=== PATIENT | male | born 1965 | race African-American/Black ===

== ENCOUNTER 2017-08-19 08:41 | Inpatient (IN) | payer OTHER ==
[2017-08-19 10:28] VITALS: BMI 46.8
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
[2017-08-19] MEDS ORDERED: MAG HYDROX/AL HYDROX/SIMETH 30 ML UNIT-DOSE CUP PO PRN (12:57)
[2017-08-19] MEDS ORDERED: MENTHOL/PHENOL 1 EACH UD MM PRN (12:57)
[2017-08-19] MEDS ORDERED: guaiFENesin/D-METHORPHAN HB 10 ML UNIT-DOSE CUPS PO PRN (12:57)
[2017-08-19] MEDS ORDERED: LOPERAMIDE HCL 2 MG CAPSULE PO PRN (12:57)
[2017-08-19] MEDS ORDERED: ACETAMINOPHEN 325 MG TABLET (FP) PO PRN (12:57)
[2017-08-19] MEDS ORDERED: P-EPHED 60MG/TRIPROLIDI 2.5MG TABLET PO PRN (12:57)
[2017-08-19] MEDS ORDERED: hydrOXYzine PAMOATE 50 MG CAPSULE (FP) PO PRN (12:57)
[2017-08-19] MEDS ORDERED: MAGNESIUM CITRATE 300 ML BOTTLE PO PRN (12:57)
--- NOTE | 2017-08-19 16:06 | HP ---
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 Medical History: Obesity Psychiatric History: denies Physical/Sexual Abuse/Trauma History: denies Vital Signs: Vital Signs - 24 hr 08/19/17 08/19/17 10:24 15:06 Temperature 98.8 F 98.8 F Pulse Rate 70 66 Respiratory 20 18 Rate Blood Pressure 126/67 147/87 Allergies/Adverse Reactions: Allergies Allergy/AdvReac Type Severity Reaction Status Date / Time No Known Allergies Allergy Verified 08/19/17 10:47 Concur with the findings of this exam: Yes - Substance Abuse/Tx History Hx Alcohol Use: Yes (reports drinking since 17 yo,beer 6 packs daily) Hx Substance Use: Yes (heroin since late 31 (MMTP 70 mg ),) Substance Use Type: Alcohol, Opiates Hx Substance Use Treatment: Yes (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, longest abstinence 7 years ) Mental Status Exam - Mental Status Exam Alert and Oriented to: Time, Place, Person Cognitive Function: Grossly Intact Patient Appearance: Well Groomed Mood: Euthymic Affect: Mood Congruent Patient Behavior: Cooperative Speech Pattern: Clear Voice Loudness: Normal Thought Process: Goal Oriented Thought Disorder: Not Present Hallucinations: Denies Suicidal Ideation: Denies Homicidal Ideation: Denies Insight/Judgement: Good Sleep: Fair Appetite: Good Muscle strength/Tone: Normal Gait/Station: Normal Psychiatric Findings - Problem List ([place] 1, 2,3) (1) Alcohol dependence Current Visit: Yes Status: Chronic (2) HTN (hypertension) Current Visit: Yes Status: Chronic Qualifiers: Hypertension type: essential hypertension Qualified Code(s): I10 - Essential (primary) hypertension (3) Methadone maintenance therapy patient Current Visit: Yes Status: Chronic (4) Obesity Current Visit: Yes Status: Chronic Qualifiers: Obesity type: due to excess calories Obesity classification: adult class 3 (BMI >= 40) Body mass index: BMI 40.0-44.9 Comment: consider bariatric surgery - to f/u with primary (5) Opiate dependence, continuous Current Visit: Yes Status: Chronic Comment: increase suboxone 4mg to BID , cont [facility] groups consider detox if unable to stop using heroin Suboxone agreement reviewed, emphasized safekeeping of medication, avoid use of illicit drugs and alcohol (6) Osteoarthritis, knee Current Visit: Yes Status: Chronic Qualifiers: Osteoarthritis type: primary Laterality: bilateral Qualified Code(s): M17.0 - Bilateral primary osteoarthritis of knee - Initial Treatment Plan Initial Treatment Plan: will monitor progress.
[2017-08-19 17:36] LABS: HEMATOCRIT 37.5 % (35.4-49); HEMOGLOBIN 12.3 GM/dL (11.7-16.9); MCH 29.3 pg (25.7-33.7); MCHC 32.8 g/dl (32.0-35.9); MEAN CELL VOLUME 89.2 fl (80-96); MEAN PLT VOLUME 8.8 fl (7.5-11.1); PLATELET COUNT 228 K/MM3 (134-434); RBC 4.21 M/mm3 (4.00-5.60); RDW 15.3 % (11.9-15.9)
[2017-08-19 17:39] LABS: URINE APPEARANCE CLEAR; URINE BILIRUBIN NEGATIVE (<2.0 mg/dL); URINE COLOR YELLOW; URINE GLUCOSE (UA) NEGATIVE (NEGATIVE); URINE KETONE NEGATIVE (NEGATIVE); URINE LEUK ESTERASE NEGATIVE (NEGATIVE); URINE NITRITE NEGATIVE (NEGATIVE); URINE PROTEIN NEGATIVE (NEGATIVE); URINE UROBILINOGEN NEGATIVE mg/dL (0.2-1.0)
[2017-08-19 17:42] LABS: ALBUMIN 3.5 g/dl (3.4-5.0); ANION GAP 5 (8-16); BLOOD UREA NITROGEN 11 mg/dL (7-18); CALCIUM 8.1 mg/dL (8.5-10.1); CHLORIDE 104 mmol/L (98-107); CO2 32 mmol/L (21-32); GLUCOSE,RANDOM 104 mg/dL (74-106); POTASSIUM 4.2 mmol/L (3.5-5.1); SODIUM 141 mmol/L (136-145)
[2017-08-19 17:47] LABS: ALK PHOS 88 U/L (45-117); BILIRUBIN,TOTAL 0.4 mg/dL (0.2-1.0); CREATININE 0.8 mg/dL (0.7-1.3); SGOT/AST 40 U/L (15-37); SGPT/ALT 31 U/L (12-78); TOT PROT 7.5 g/dl (6.4-8.2)
[2017-08-19 17:55] LABS: URINE MUCUS RARE
[2017-08-19] MEDS: THIAMINE HCL 100 MG TABLET (FP) PO SCH (23:58)
[2017-08-20] MEDS ORDERED: METHADONE HCL 40 MG DISPERSABLE TABLET ONE (05:54)
[2017-08-20] MEDS ORDERED: METHADONE HCL 10 MG TABLET ONE (05:54)
[2017-08-20] MEDS ORDERED: METHADONE HCL 40 MG DISPERSABLE TABLET PO SCH (06:00)
[2017-08-20] MEDS: METHADONE 40 MG, METHADONE 30 MG PO SCH (06:25)
[2017-08-20] MEDS: PRENATAL VITAMINS W/ FOLIC ACID TABLET (FP) PO SCH (09:53)
[2017-08-20] MEDS: HYDROCHLOROTHIAZIDE 25 MG TABLET (FP) PO SCH (09:53)
--- NOTE | 2017-08-20 11:59 | EKG ---
Test Reason : Blood Pressure : / mmHG Vent. Rate : 052 BPM Atrial Rate : 052 BPM P-R Int : 172 ms QRS Dur : 098 ms QT Int : 484 ms P-R-T Axes : 055 -07 010 degrees QTc Int : 450 ms SINUS BRADYCARDIA MINIMAL VOLTAGE CRITERIA FOR LVH, MAY BE NORMAL VARIANT BORDERLINE ECG WHEN COMPARED WITH ECG OF 19-JUN-2017 08:52, NO SIGNIFICANT CHANGE WAS FOUND Confirmed by MD JASVIR, COTY ([id number]) on 08/20/2017 11:59:35 AM Referred By: Confirmed By:COTY TAY MD
[2017-08-20] MEDS: THIAMINE HCL 100 MG TABLET (FP) PO SCH (22:22)
[2017-08-21] MEDS ORDERED: METHADONE HCL 10 MG TABLET ONE (04:36)
[2017-08-21] MEDS ORDERED: METHADONE HCL 40 MG DISPERSABLE TABLET ONE (04:37)
[2017-08-21] MEDS: METHADONE 40 MG, METHADONE 30 MG PO SCH (05:59)
[2017-08-21] MEDS: PRENATAL VITAMINS W/ FOLIC ACID TABLET (FP) PO SCH (10:04)
[2017-08-21] MEDS: HYDROCHLOROTHIAZIDE 25 MG TABLET (FP) PO SCH (10:04)
[2017-08-21] MEDS: THIAMINE HCL 100 MG TABLET (FP) PO SCH (21:40)
[2017-08-21] MEDS: MELATONIN 5 MG TABLETS PO PRN (21:40)
[2017-08-22] MEDS ORDERED: METHADONE HCL 40 MG DISPERSABLE TABLET ONE (05:34)
[2017-08-22] MEDS ORDERED: METHADONE HCL 10 MG TABLET ONE (05:34)
[2017-08-22] MEDS: METHADONE 40 MG, METHADONE 30 MG PO SCH (06:01)
[2017-08-22] MEDS: PRENATAL VITAMINS W/ FOLIC ACID TABLET (FP) PO SCH (10:14)
[2017-08-22] MEDS: HYDROCHLOROTHIAZIDE 25 MG TABLET (FP) PO SCH (10:14)
--- NOTE | 2017-08-22 12:36 | PN ---
S Progress Note Note: 52 yo male with hx of chronic EOTH dependence, HTN, obesity, c/o of bilateral leg swelling and sharp pain x "a few weeks", reports poor compliance with medical follow up and medications while out patient. Vital Signs Temperature 98.6 F 08/22/17 06:41 Pulse Rate 56 L 08/22/17 06:41 Respiratory Rate 18 08/22/17 06:41 Blood Pressure 120/72 08/22/17 06:41 O2 Sat by Pulse Oximetry (%) Laboratory Last Values WBC 8.0 K/mm3 (4.0-10.0) 08/19/17 13:00 RBC 4.21 M/mm3 (4.00-5.60) 08/19/17 13:00 Hgb 12.3 GM/dL (11.7-16.9) 08/19/17 13:00 Hct 37.5 % (35.4-49) 08/19/17 13:00 MCV 89.2 fl (80-96) 08/19/17 13:00 MCH 29.3 pg (25.7-33.7) 08/19/17 13:00 MCHC 32.8 g/dl (32.0-35.9) 08/19/17 13:00 RDW 15.3 % (11.9-15.9) 08/19/17 13:00 Plt Count 228 K/MM3 (134-434) 08/19/17 13:00 MPV 8.8 fl (7.5-11.1) 08/19/17 13:00 Sodium 141 mmol/L (136-145) 08/19/17 13:00 Potassium 4.2 mmol/L (3.5-5.1) 08/19/17 13:00 Chloride 104 mmol/L (98-107) 08/19/17 13:00 Carbon Dioxide 32 mmol/L (21-32) 08/19/17 13:00 Anion Gap 5 (8-16) L 08/19/17 13:00 BUN 11 mg/dL (7-18) D 08/19/17 13:00 Creatinine 0.8 mg/dL (0.7-1.3) 08/19/17 13:00 Creat Clearance w eGFR > 60 (>60) 08/19/17 13:00 Random Glucose 104 mg/dL (74-106) 08/19/17 13:00 Calcium 8.1 mg/dL (8.5-10.1) L 08/19/17 13:00 Total Bilirubin 0.4 mg/dL (0.2-1.0) 08/19/17 13:00 AST 40 U/L (15-37) H D 08/19/17 13:00 ALT 31 U/L (12-78) 08/19/17 13:00 Alkaline Phosphatase 88 U/L (45-117) D 08/19/17 13:00 Total Protein 7.5 g/dl (6.4-8.2) 08/19/17 13:00 Albumin 3.5 g/dl (3.4-5.0) 08/19/17 13:00 Urine Color Yellow 08/19/17 14:00 Urine Appearance Clear 08/19/17 14:00 Urine pH 7.0 (5.0-8.0) 08/19/17 14:00 Ur Specific [place] 1.018 (1.001-1.035) 08/19/17 14:00 Urine Protein Negative (NEGATIVE) 08/19/17 14:00 Urine Glucose (UA) Negative (NEGATIVE) 08/19/17 14:00 Urine Ketones Negative (NEGATIVE) 08/19/17 14:00 Urine Blood 1+ (NEGATIVE) H 08/19/17 14:00 Urine Nitrite Negative (NEGATIVE) 08/19/17 14:00 Urine Bilirubin Negative (<2.0 mg/dL) 08/19/17 14:00 Urine Urobilinogen Negative mg/dL (0.2-1.0) 08/19/17 14:00 Ur Leukocyte Esterase Negative (NEGATIVE) 08/19/17 14:00 Urine WBC (Auto) <1 /hpf (3-5) 08/19/17 14:00 Urine RBC (Auto) 16 /hpf (0-3) 08/19/17 14:00 Urine Mucus Rare 08/19/17 14:00 RPR Titer Nonreactive (NONREACTIVE) 08/19/17 13:00 A/P Patient AOx3 in no apparent distress No adventitious breath sounds Full ROM, no joint swelling or edema Skin intact, pulses present, no erythema, warm to touch - 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
[2017-08-22] MEDS: GABAPENTIN 100 MG CAPSULE (FP) PO SCH ×2 (14:22→21:18)
[2017-08-22] MEDS: MELATONIN 5 MG TABLETS PO PRN (21:18)
[2017-08-22] MEDS: THIAMINE HCL 100 MG TABLET (FP) PO SCH (21:18)
[2017-08-23] MEDS ORDERED: METHADONE HCL 10 MG TABLET ONE (04:15)
[2017-08-23] MEDS ORDERED: METHADONE HCL 40 MG DISPERSABLE TABLET ONE (04:15)
[2017-08-23] MEDS: GABAPENTIN 100 MG CAPSULE (FP) PO SCH ×3 (06:25→21:26)
[2017-08-23] MEDS: METHADONE 40 MG, METHADONE 30 MG PO SCH (06:26)
[2017-08-23] MEDS: HYDROCHLOROTHIAZIDE 25 MG TABLET (FP) PO SCH (10:41)
[2017-08-23] MEDS: PRENATAL VITAMINS W/ FOLIC ACID TABLET (FP) PO SCH (10:41)
[2017-08-23] MEDS: THIAMINE HCL 100 MG TABLET (FP) PO SCH (21:26)
[2017-08-24] MEDS: IBUPROFEN 400 MG TABLET (FP) PO PRN (02:20)
[2017-08-24] MEDS ORDERED: METHADONE HCL 10 MG TABLET ONE (05:07)
[2017-08-24] MEDS ORDERED: METHADONE HCL 40 MG DISPERSABLE TABLET ONE (05:07)
[2017-08-24] MEDS: METHADONE 40 MG, METHADONE 30 MG PO SCH (06:14)
[2017-08-24] MEDS: GABAPENTIN 100 MG CAPSULE (FP) PO SCH ×3 (06:14→21:40)
[2017-08-24] MEDS: PRENATAL VITAMINS W/ FOLIC ACID TABLET (FP) PO SCH (09:56)
[2017-08-24] MEDS: HYDROCHLOROTHIAZIDE 25 MG TABLET (FP) PO SCH (09:56)
[2017-08-24] MEDS: THIAMINE HCL 100 MG TABLET (FP) PO SCH (21:40)
[2017-08-25] MEDS ORDERED: METHADONE HCL 10 MG TABLET ONE (02:25)
[2017-08-25] MEDS ORDERED: METHADONE HCL 40 MG DISPERSABLE TABLET ONE (02:26)
[2017-08-25] MEDS: METHADONE 40 MG, METHADONE 30 MG PO SCH (06:00)
[2017-08-25] MEDS: GABAPENTIN 100 MG CAPSULE (FP) PO SCH ×3 (06:00→21:22)
[2017-08-25] MEDS: PRENATAL VITAMINS W/ FOLIC ACID TABLET (FP) PO SCH (09:50)
[2017-08-25] MEDS: HYDROCHLOROTHIAZIDE 25 MG TABLET (FP) PO SCH (09:50)
[2017-08-25] MEDS: IBUPROFEN 400 MG TABLET (FP) PO PRN (19:42)
[2017-08-25] MEDS: THIAMINE HCL 100 MG TABLET (FP) PO SCH (21:22)
[2017-08-25] MEDS: MELATONIN 5 MG TABLETS PO PRN (21:22)
[2017-08-26] MEDS ORDERED: METHADONE HCL 10 MG TABLET ONE (04:09)
[2017-08-26] MEDS ORDERED: METHADONE HCL 40 MG DISPERSABLE TABLET ONE (04:10)
[2017-08-26] MEDS: GABAPENTIN 100 MG CAPSULE (FP) PO SCH ×3 (05:54→21:20)
[2017-08-26] MEDS: METHADONE 40 MG, METHADONE 30 MG PO SCH (05:54)
[2017-08-26] MEDS ORDERED: METHADONE 40 MG, METHADONE 30 MG PO SCH (06:29)
--- NOTE | 2017-08-26 09:46 | PN ---
S Progress Note Note: c/o insomnia, Melatonin not effective, will add Benadryl 50 mg po hs
[2017-08-26] MEDS: HYDROCHLOROTHIAZIDE 25 MG TABLET (FP) PO SCH (09:59)
[2017-08-26] MEDS: PRENATAL VITAMINS W/ FOLIC ACID TABLET (FP) PO SCH (09:59)
[2017-08-26] MEDS: MAGNESIUM HYDROX 2400MG/30ML ORAL SUSPENSION 30 ML CUP PO PRN (10:00)
[2017-08-26] MEDS: diphenhydrAMINE HCL 50 MG CAPSULE PO PRN (21:20)
[2017-08-26] MEDS: THIAMINE HCL 100 MG TABLET (FP) PO SCH (21:20)
[2017-08-27] MEDS ORDERED: METHADONE HCL 40 MG DISPERSABLE TABLET ONE (03:11)
[2017-08-27] MEDS ORDERED: METHADONE HCL 10 MG TABLET ONE (03:11)
[2017-08-27] MEDS ORDERED: METHADONE HCL 10 MG TABLET PO SCH (07:00)
[2017-08-27] MEDS: GABAPENTIN 100 MG CAPSULE (FP) PO SCH ×3 (07:03→21:32)
[2017-08-27] MEDS: METHADONE 40 MG, METHADONE 30 MG PO SCH (07:03)
[2017-08-27] MEDS: PRENATAL VITAMINS W/ FOLIC ACID TABLET (FP) PO SCH (10:12)
[2017-08-27] MEDS: HYDROCHLOROTHIAZIDE 25 MG TABLET (FP) PO SCH (10:12)
[2017-08-27] MEDS: IBUPROFEN 400 MG TABLET (FP) PO PRN (13:52)
[2017-08-27] MEDS: THIAMINE HCL 100 MG TABLET (FP) PO SCH (21:32)
[2017-08-27] MEDS: diphenhydrAMINE HCL 50 MG CAPSULE PO PRN (21:32)
[2017-08-28] MEDS ORDERED: METHADONE HCL 10 MG TABLET ONE (04:04)
[2017-08-28] MEDS ORDERED: METHADONE HCL 40 MG DISPERSABLE TABLET ONE (04:05)
[2017-08-28] MEDS: GABAPENTIN 100 MG CAPSULE (FP) PO SCH ×3 (06:31→21:25)
[2017-08-28] MEDS: METHADONE 40 MG, METHADONE 30 MG PO SCH (06:31)
[2017-08-28] MEDS: PRENATAL VITAMINS W/ FOLIC ACID TABLET (FP) PO SCH (10:11)
[2017-08-28] MEDS: HYDROCHLOROTHIAZIDE 25 MG TABLET (FP) PO SCH (10:11)
--- NOTE | 2017-08-28 13:27 | PN ---
[facility] Progress Note Note: patient c/o insomnia, Benadryl not effective, discussed indications and properties of Belsomra, patient agreed to start
[2017-08-28] MEDS: THIAMINE HCL 100 MG TABLET (FP) PO SCH (21:25)
[2017-08-28] MEDS ORDERED: SUVOREXANT 10 MG TABLET PO SCH (22:00)
[2017-08-29] MEDS ORDERED: METHADONE HCL 40 MG DISPERSABLE TABLET ONE (03:24)
[2017-08-29] MEDS ORDERED: METHADONE HCL 10 MG TABLET ONE (03:24)
[2017-08-29] MEDS: METHADONE 40 MG, METHADONE 30 MG PO SCH (06:10)
[2017-08-29] MEDS: GABAPENTIN 100 MG CAPSULE (FP) PO SCH (06:10)
[2017-08-29] MEDS: MAGNESIUM HYDROX 2400MG/30ML ORAL SUSPENSION 30 ML CUP PO PRN (07:08)
[2017-08-29 07:14] VITALS: TEMP 98.8
--- NOTE | 2017-08-29 08:44 | PN ---
Psychiatric Progress Note Vital Signs: Vital Signs Period Temp Pulse Resp BP Sys/Walker Pulse Ox Last 24 Hr 98.8 F 56-64 16 112-113/63-64 Date of Session: 08/29/17 Chief Complaint:: discharge visit HPI: Patient has addressed alcohol, cocaine, opioid dependence. ROS: HTN, medically managed. Current Medications: Active Medications Generic Name Dose Route Start Last Admin Trade Name Freq PRN Reason Stop Dose Admin Al Hydroxide/Mg Hydroxide 30 ml 08/19/17 12:57 Mylanta Oral Suspension - PO Q6H PRN DYSPEPSIA Diphenhydramine HCl 50 mg 08/26/17 09:40 08/27/17 21:32 Benadryl - PO 50 mg HS PRN Administration INSOMNIA Eucalyptus/Menthol/Phenol/Sorbitol 1 each 08/19/17 12:57 Cepastat Lozenge - MM Q4H PRN SORE THROAT Gabapentin 100 mg 08/22/17 14:00 08/29/17 06:10 Neurontin - PO 100 mg TID SUSAN Administration Guaifenesin 10 ml 08/19/17 12:57 Robitussin Dm - PO Q6H PRN COUGH Hydrochlorothiazide 25 mg 08/20/17 10:00 08/28/17 10:11 Hctz - PO 25 mg DAILY SUSAN Administration Hydroxyzine Pamoate 50 mg 08/19/17 12:57 08/23/17 03:04 Vistaril - PO 50 mg Q4H PRN Administration AGITATION Ibuprofen 400 mg 08/19/17 12:57 08/27/17 13:52 Motrin - PO 400 mg Q6H PRN Administration Pain level 4-6 Loperamide HCl 4 mg 08/19/17 12:57 Imodium - PO Q6H PRN DIARRHEA Magnesium Citrate 300 ml 08/19/17 12:57 Citroma - PO Q48H PRN CONSTIPATION Magnesium Hydroxide 30 ml 08/19/17 12:57 08/29/17 07:08 Milk Of Magnesia - PO 30 ml DAILY PRN Administration CONSTIPATION Melatonin 5 mg 08/19/17 22:00 08/25/17 21:22 Melatonin PO 5 mg HS PRN Administration INSOMNIA Methadone HCl 40 mg/ Methadone 70 mg 08/27/17 07:00 08/29/17 06:10 HCl 30 mg PO 70 mg DAILY@0600 SUSAN Administration Multivit/Folic Acid/Iron 1 tab 08/20/17 10:00 08/28/17 10:11 Vitamins (Sjr) - PO 1 tab DAILY SUSAN Administration Pseudoephedrine/Triprolidine 1 combo 08/19/17 12:57 Actifed - PO TID PRN NASAL CONGESTION Suvorexant 10 mg 08/28/17 22:00 08/28/17 21:25 Belsomra PO 09/04/17 21:59 10 mg HS SUSAN Administration Thiamine HCl 100 mg 08/19/17 22:00 08/28/17 21:25 Vitamin B1 - PO 100 mg HS SUSAN Administration Current Side Effect: No Lab tests ordered: No Lab tests reviewed: Yes Provider note:: Patient has completed today his treatment and met his goals, will continue to address his issues at [facility] outpatient treatment program. Patient gained insights into importance of changing attitudes and utilization of supports available to prevent relapses. Patient is stable for discharge today. Total face to face time:: 20 Mental Status Exam - Mental Status Exam Alert and Oriented to: Time, Place, Person Cognitive Function: Good Patient Appearance: Well Groomed Mood: Hopeful Affect: Appropriate, Mood Congruent Patient Behavior: Appropriate, Cooperative Speech Pattern: Clear, Appropriate Voice Loudness: Normal Thought Process: Intact, Goal Oriented Thought Disorder: Not Present Hallucinations: Denies Suicidal Ideation: Denies Homicidal Ideation: Denies Insight/Judgement: Fair Sleep: Well Appetite: Good Muscle strength/Tone: Normal Gait/Station: Normal Psychiatric Treatment Plan - Problem List (1) Alcohol dependence Current Visit: Yes Qualifiers: Substance use status: uncomplicated Qualified Code(s): F10.20 - Alcohol dependence, uncomplicated (2) HTN (hypertension) Current Visit: Yes Qualifiers: Hypertension type: essential hypertension Qualified Code(s): I10 - Essential (primary) hypertension (3) Methadone maintenance therapy patient Current Visit: Yes (4) Obesity Current Visit: Yes Qualifiers: Obesity type: due to excess calories Obesity classification: adult class 3 (BMI >= 40) Body mass index: BMI 40.0-44.9 Comment: consider bariatric surgery - to f/u with primary (5) Opiate dependence, continuous Current Visit: Yes Comment: increase suboxone 4mg to BID , cont [facility] consider detox if unable to stop using heroin Suboxone agreement reviewed, emphasized safekeeping of medication, avoid use of illicit drugs and alcohol (6) Cocaine dependence Current Visit: No
[2017-08-29] MEDS: HYDROCHLOROTHIAZIDE 25 MG TABLET (FP) PO SCH (09:43)
[2017-08-29] MEDS: PRENATAL VITAMINS W/ FOLIC ACID TABLET (FP) PO SCH (09:43)
[2017-08-29 12:59] VITALS: BP 143/69; PULSE 67
== END 2017-08-29 10:00 | disposition home or self-care (01) | DRG 772 ==
LOC: YASAS 08:41 → Y5N 12:57
PROVIDERS: ADMIT Psychiatry & Neurology Psychiatry; ATTEND Psychiatry & Neurology Psychiatry
PROC: HZ42ZZZ Group Counseling for Substance Abuse Treatment, Cognitive-Behavioral (ICD-10-PCS; principal; 2017-08-19)
DX: F11.20 Opioid dependence, uncomplicated (principal); F10.20 Alcohol dependence, uncomplicated; I10 Essential (primary) hypertension; M17.0 Bilateral primary osteoarthritis of knee; G62.1 Alcoholic polyneuropathy; R60.0 Localized edema; E66.9 Obesity, unspecified; Z68.41 Body mass index [BMI] 40.0-44.9, adult
CPT/HCPCS: 36415; 80053; 81003; 81015; 85027; 86593; 93005; 93010

== ENCOUNTER 2018-01-01 09:37 | Inpatient (IN) | payer OTHER ==
[2018-01-01 10:09] VITALS: BMI 48.4
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
[2018-01-01] MEDS ORDERED: MAG HYDROX/AL HYDROX/SIMETH 30 ML UNIT-DOSE CUP PO PRN (11:31)
[2018-01-01] MEDS ORDERED: P-EPHED 60MG/TRIPROLIDI 2.5MG TABLET PO PRN (11:31)
[2018-01-01] MEDS ORDERED: MAGNESIUM CITRATE 300 ML BOTTLE PO PRN (11:31)
[2018-01-01] MEDS ORDERED: LOPERAMIDE HCL 2 MG CAPSULE PO PRN (11:31)
[2018-01-01] MEDS ORDERED: guaiFENesin/D-METHORPHAN HB 10 ML UNIT-DOSE CUPS PO PRN (11:31)
[2018-01-01] MEDS ORDERED: MENTHOL/PHENOL 1 EACH UD MM PRN (11:31)
[2018-01-01] MEDS ORDERED: MAGNESIUM HYDROX 2400MG/30ML ORAL SUSPENSION 30 ML CUP PO PRN (11:31)
[2018-01-01] MEDS: ACETAMINOPHEN 325 MG TABLET (FP) PO PRN (14:29)
[2018-01-01] MEDS: HYDROCHLOROTHIAZIDE 25 MG TABLET (FP) PO SCH (14:29)
[2018-01-01 14:38] LABS: HEMATOCRIT 38.5 % (35.4-49); HEMOGLOBIN 12.6 GM/dL (11.7-16.9); MCH 29.3 pg (25.7-33.7); MCHC 32.8 g/dl (32.0-35.9); MEAN CELL VOLUME 89.4 fl (80-96); MEAN PLT VOLUME 8.4 fl (7.5-11.1); PLATELET COUNT 241 K/MM3 (134-434); RBC 4.31 M/mm3 (4.00-5.60); RDW 15.5 % (11.9-15.9); WHITE BLOOD COUNT 7.7 K/mm3 (4.0-10.0)
[2018-01-01 14:53] LABS: ALBUMIN 3.6 g/dl (3.4-5.0); ALK PHOS 92 U/L (45-117); ANION GAP 6 MMOL/L (8-16); BILIRUBIN,TOTAL 0.3 mg/dL (0.2-1); BLOOD UREA NITROGEN 10 mg/dL (7-18); CALCIUM 8.5 mg/dL (8.5-10.1); CHLORIDE 102 mmol/L (98-107); CO2 30 mmol/L (21-32); CREATININE 0.8 mg/dL (0.55-1.3); GLUCOSE,RANDOM 102 mg/dL (74-106); POTASSIUM 4.1 mmol/L (3.5-5.1); SGOT/AST 35 U/L (15-37); SGPT/ALT 39 U/L (13-61); SODIUM 138 mmol/L (136-145); TOT PROT 7.5 g/dl (6.4-8.2)
--- NOTE | 2018-01-01 15:26 | EKG ---
Test Reason : Blood Pressure : / mmHG Vent. Rate : 071 BPM Atrial Rate : 071 BPM P-R Int : 148 ms QRS Dur : 098 ms QT Int : 410 ms P-R-T Axes : 058 -10 005 degrees QTc Int : 445 ms NORMAL SINUS RHYTHM MODERATE VOLTAGE CRITERIA FOR LVH, MAY BE NORMAL VARIANT BORDERLINE ECG WHEN COMPARED WITH ECG OF 20-AUG-2017 07:32, NO SIGNIFICANT CHANGE WAS FOUND Confirmed by MATHEUS MCCALL, SHEKHAR ([id number]) on 01/01/2018 3:25:39 PM Referred By: Confirmed By:SHEKHAR JARVIS MD
[2018-01-01 18:36] LABS: URINE APPEARANCE CLEAR; URINE BILIRUBIN NEGATIVE (<2.0 mg/dL); URINE COLOR YELLOW; URINE GLUCOSE (UA) NEGATIVE (NEGATIVE); URINE KETONE NEGATIVE (NEGATIVE); URINE LEUK ESTERASE NEGATIVE (NEGATIVE); URINE NITRITE NEGATIVE (NEGATIVE); URINE PROTEIN NEGATIVE (NEGATIVE); URINE UROBILINOGEN NEGATIVE mg/dL (0.2-1.0)
[2018-01-01 18:50] LABS: URINE MUCUS RARE
[2018-01-01] MEDS: THIAMINE HCL 100 MG TABLET (FP) PO SCH (21:22)
[2018-01-01] MEDS: MELATONIN 5 MG TABLETS PO PRN (21:22)
[2018-01-02] MEDS ORDERED: METHADONE HCL 10 MG TABLET PO SCH (06:00)
[2018-01-02] MEDS ORDERED: METHADONE HCL 10 MG TABLET ONE (06:02)
[2018-01-02] MEDS ORDERED: METHADONE HCL 40 MG DISPERSABLE TABLET ONE (06:03)
[2018-01-02] MEDS: METHADONE 40 MG, METHADONE 30 MG PO SCH (06:14)
[2018-01-02] MEDS: PRENATAL VITAMINS W/ FOLIC ACID TABLET (FP) PO SCH (10:27)
[2018-01-02] MEDS: HYDROCHLOROTHIAZIDE 25 MG TABLET (FP) PO SCH (10:27)
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
[2018-01-02] MEDS: THIAMINE HCL 100 MG TABLET (FP) PO SCH (21:25)
[2018-01-02] MEDS: MELATONIN 5 MG TABLETS PO PRN (21:26)
[2018-01-03] MEDS ORDERED: METHADONE HCL 10 MG TABLET ONE (06:06)
[2018-01-03] MEDS: ACETAMINOPHEN 325 MG TABLET (FP) PO PRN (06:07)
[2018-01-03] MEDS ORDERED: METHADONE HCL 40 MG DISPERSABLE TABLET ONE (06:07)
[2018-01-03] MEDS: METHADONE 40 MG, METHADONE 30 MG PO SCH (06:07)
[2018-01-03] MEDS: HYDROCHLOROTHIAZIDE 25 MG TABLET (FP) PO SCH (10:09)
[2018-01-03] MEDS: PRENATAL VITAMINS W/ FOLIC ACID TABLET (FP) PO SCH (10:09)
[2018-01-03] MEDS: MELATONIN 5 MG TABLETS PO PRN (21:25)
[2018-01-03] MEDS: THIAMINE HCL 100 MG TABLET (FP) PO SCH (21:25)
[2018-01-04] MEDS ORDERED: METHADONE HCL 40 MG DISPERSABLE TABLET ONE (03:39)
[2018-01-04] MEDS ORDERED: METHADONE HCL 10 MG TABLET ONE (03:39)
[2018-01-04] MEDS: METHADONE 40 MG, METHADONE 30 MG PO SCH (06:47)
[2018-01-04] MEDS: IBUPROFEN 400 MG TABLET (FP) PO PRN (07:31)
[2018-01-04] MEDS: PRENATAL VITAMINS W/ FOLIC ACID TABLET (FP) PO SCH (10:13)
[2018-01-04] MEDS: HYDROCHLOROTHIAZIDE 25 MG TABLET (FP) PO SCH (10:13)
[2018-01-04] MEDS: THIAMINE HCL 100 MG TABLET (FP) PO SCH (21:39)
[2018-01-04] MEDS: hydrOXYzine PAMOATE 50 MG CAPSULE (FP) PO PRN (21:40)
[2018-01-05] MEDS ORDERED: METHADONE HCL 10 MG TABLET ONE (06:32)
[2018-01-05] MEDS: METHADONE 40 MG, METHADONE 30 MG PO SCH (06:33)
[2018-01-05] MEDS ORDERED: METHADONE HCL 40 MG DISPERSABLE TABLET ONE (06:33)
[2018-01-05] MEDS: HYDROCHLOROTHIAZIDE 25 MG TABLET (FP) PO SCH (10:20)
[2018-01-05] MEDS: PRENATAL VITAMINS W/ FOLIC ACID TABLET (FP) PO SCH (10:20)
[2018-01-05] MEDS: THIAMINE HCL 100 MG TABLET (FP) PO SCH (21:22)
[2018-01-05] MEDS: MELATONIN 5 MG TABLETS PO PRN (21:22)
[2018-01-05] MEDS: hydrOXYzine PAMOATE 50 MG CAPSULE (FP) PO PRN (21:23)
[2018-01-06] MEDS ORDERED: METHADONE HCL 40 MG DISPERSABLE TABLET ONE (03:22)
[2018-01-06] MEDS ORDERED: METHADONE HCL 10 MG TABLET ONE (03:22)
[2018-01-06] MEDS: METHADONE 40 MG, METHADONE 30 MG PO SCH (06:53)
[2018-01-06] MEDS: HYDROCHLOROTHIAZIDE 25 MG TABLET (FP) PO SCH (10:04)
[2018-01-06] MEDS: PRENATAL VITAMINS W/ FOLIC ACID TABLET (FP) PO SCH (10:04)
[2018-01-06] MEDS: THIAMINE HCL 100 MG TABLET (FP) PO SCH (21:19)
[2018-01-06] MEDS: hydrOXYzine PAMOATE 50 MG CAPSULE (FP) PO PRN (21:20)
[2018-01-07] MEDS ORDERED: METHADONE HCL 10 MG TABLET ONE (04:59)
[2018-01-07] MEDS ORDERED: METHADONE HCL 40 MG DISPERSABLE TABLET ONE (05:00)
[2018-01-07] MEDS: METHADONE 40 MG, METHADONE 30 MG PO SCH (06:09)
[2018-01-07] MEDS: PRENATAL VITAMINS W/ FOLIC ACID TABLET (FP) PO SCH (09:51)
[2018-01-07] MEDS: HYDROCHLOROTHIAZIDE 25 MG TABLET (FP) PO SCH (09:51)
[2018-01-07] MEDS: IBUPROFEN 400 MG TABLET (FP) PO PRN (13:50)
[2018-01-07] MEDS: THIAMINE HCL 100 MG TABLET (FP) PO SCH (21:15)
[2018-01-07] MEDS: hydrOXYzine PAMOATE 50 MG CAPSULE (FP) PO PRN (21:15)
[2018-01-08] MEDS ORDERED: METHADONE HCL 10 MG TABLET ONE (06:10)
[2018-01-08] MEDS ORDERED: METHADONE HCL 40 MG DISPERSABLE TABLET ONE (06:10)
[2018-01-08] MEDS: IBUPROFEN 400 MG TABLET (FP) PO PRN (06:11)
[2018-01-08] MEDS: METHADONE 40 MG, METHADONE 30 MG PO SCH (06:12)
[2018-01-08] MEDS: HYDROCHLOROTHIAZIDE 25 MG TABLET (FP) PO SCH (10:36)
[2018-01-08] MEDS: PRENATAL VITAMINS W/ FOLIC ACID TABLET (FP) PO SCH (10:37)
[2018-01-08] MEDS ORDERED: IBUPROFEN 400 MG TABLET (FP) PO SCH (11:00)
--- NOTE | 2018-01-08 11:04 | PN ---
S Progress Note Note: PT C/O LEFT KNEE PAIN AND SWELLING. PT REPORTS CHRONIC HX ARTHRITIS("MY DOCTOR SAID I HAVE ARTHRITIS") WITH ON/OFF PAIN ON THE KNEE. PT WAS OFFERED A CANE BUT HE DECLINED. LEFT KNEE/LEG: VERY MINIMAL SWELLING COMPARED TO RIGHT KNEE. NO PAIN ON PALPATION OF LEFT KNEE DX:S/P ARTHRITIS WITH A FLARE PLAN;NAPROSYN 500 MG PO BID ANALGESIC BALM.
[2018-01-08] MEDS ORDERED: NAPROXEN 500 MG TABLET (FP) PO ONE (11:45)
[2018-01-08] MEDS: METHYL SALICYLATE/MENTHOL OINT 30 GM TUBE TP SCH ×2 (12:53→21:22)
[2018-01-08] MEDS: MELATONIN 5 MG TABLETS PO PRN (21:21)
[2018-01-08] MEDS: NAPROXEN 500 MG TABLET (FP) PO SCH (21:21)
[2018-01-08] MEDS: THIAMINE HCL 100 MG TABLET (FP) PO SCH (21:21)
[2018-01-09] MEDS ORDERED: METHADONE HCL 10 MG TABLET ONE (04:27)
[2018-01-09] MEDS ORDERED: METHADONE HCL 40 MG DISPERSABLE TABLET ONE (04:28)
[2018-01-09] MEDS: METHADONE 40 MG, METHADONE 30 MG PO SCH (06:20)
[2018-01-09] MEDS ORDERED: PT OWN MED DRAWER 7, Y5N ONE (09:06)
[2018-01-09] MEDS: PRENATAL VITAMINS W/ FOLIC ACID TABLET (FP) PO SCH (10:01)
[2018-01-09] MEDS: HYDROCHLOROTHIAZIDE 25 MG TABLET (FP) PO SCH (10:01)
[2018-01-09] MEDS: NAPROXEN 500 MG TABLET (FP) PO SCH ×2 (10:01→21:20)
[2018-01-09] MEDS: METHYL SALICYLATE/MENTHOL OINT 30 GM TUBE TP SCH ×2 (10:01→21:20)
[2018-01-09] MEDS: THIAMINE HCL 100 MG TABLET (FP) PO SCH (21:20)
[2018-01-09] MEDS: hydrOXYzine PAMOATE 50 MG CAPSULE (FP) PO PRN (21:20)
[2018-01-10] MEDS ORDERED: METHADONE HCL 10 MG TABLET ONE (05:48)
[2018-01-10] MEDS ORDERED: METHADONE HCL 40 MG DISPERSABLE TABLET ONE (05:49)
[2018-01-10] MEDS: METHADONE 40 MG, METHADONE 30 MG PO SCH (06:14)
[2018-01-10] MEDS: PRENATAL VITAMINS W/ FOLIC ACID TABLET (FP) PO SCH (10:11)
[2018-01-10] MEDS: NAPROXEN 500 MG TABLET (FP) PO SCH ×2 (10:11→21:30)
[2018-01-10] MEDS: HYDROCHLOROTHIAZIDE 25 MG TABLET (FP) PO SCH (10:11)
[2018-01-10] MEDS: METHYL SALICYLATE/MENTHOL OINT 30 GM TUBE TP SCH ×2 (10:12→21:30)
[2018-01-10] MEDS: THIAMINE HCL 100 MG TABLET (FP) PO SCH (21:30)
[2018-01-10] MEDS: hydrOXYzine PAMOATE 50 MG CAPSULE (FP) PO PRN (21:31)
[2018-01-11] MEDS ORDERED: METHADONE HCL 40 MG DISPERSABLE TABLET ONE (06:19)
[2018-01-11] MEDS ORDERED: METHADONE HCL 10 MG TABLET ONE (06:19)
[2018-01-11] MEDS: METHADONE 40 MG, METHADONE 30 MG PO SCH (06:19)
[2018-01-11] MEDS: PRENATAL VITAMINS W/ FOLIC ACID TABLET (FP) PO SCH (10:00)
[2018-01-11] MEDS: HYDROCHLOROTHIAZIDE 25 MG TABLET (FP) PO SCH (10:00)
[2018-01-11] MEDS: NAPROXEN 500 MG TABLET (FP) PO SCH ×2 (10:00→21:27)
[2018-01-11] MEDS: METHYL SALICYLATE/MENTHOL OINT 30 GM TUBE TP SCH ×2 (10:01→21:28)
[2018-01-11] MEDS: THIAMINE HCL 100 MG TABLET (FP) PO SCH (21:27)
[2018-01-11] MEDS: hydrOXYzine PAMOATE 50 MG CAPSULE (FP) PO PRN (21:28)
[2018-01-12] MEDS ORDERED: METHADONE HCL 10 MG TABLET ONE (02:18)
[2018-01-12] MEDS ORDERED: METHADONE HCL 40 MG DISPERSABLE TABLET ONE (02:18)
[2018-01-12] MEDS: METHADONE 40 MG, METHADONE 30 MG PO SCH (06:19)
[2018-01-12] MEDS: PRENATAL VITAMINS W/ FOLIC ACID TABLET (FP) PO SCH (09:50)
[2018-01-12] MEDS: METHYL SALICYLATE/MENTHOL OINT 30 GM TUBE TP SCH ×2 (09:50→21:58)
[2018-01-12] MEDS: HYDROCHLOROTHIAZIDE 25 MG TABLET (FP) PO SCH (09:50)
[2018-01-12] MEDS: NAPROXEN 500 MG TABLET (FP) PO SCH ×2 (09:50→21:20)
[2018-01-12] MEDS: THIAMINE HCL 100 MG TABLET (FP) PO SCH (21:20)
[2018-01-12] MEDS: hydrOXYzine PAMOATE 50 MG CAPSULE (FP) PO PRN (21:29)
--- NOTE | 2018-01-12 22:42 | PN ---
S Progress Note Note: MD'S NOTE: INFORMED AT ABOUT 9:45PM THAT SOMEONE FELL ON HIS LEFT LOWER LIMB C/O: DEVELOPED PAIN IN LEFT KNEE REGION+ NO OTHER NEW COMPLAINTS O/E: THE PT. IS JONES X 3, NOT IN DISTRESS AND HE IS WALKING SLOWLY EDEMATOUS (ONGOING) LOWER LIMBS+++ L/E: LEFT KNEE: MILD SWELLING+ MILD TENDERNESS+ MOVEMENTS ARE SATISFACTORY BUT EXTREME MOVEMENTS ARE LIMITED CLINICALLY NO EVIDENCE OF FRACTURES. IMPRESSION: SOFT TISSUE INJURY LEFT KNEE REGION PLANS: ICE PACKING LOCALLY - PRN NERIS BANDAGE - PRN ANALGESICS - PRN WILL CONSIDER X-RAY IN THE EVENT OF WORSENING PAIN WILL F/U: NEEDED. PROVIDER: MARGRET RENDON MD
[2018-01-13] MEDS ORDERED: METHADONE HCL 40 MG DISPERSABLE TABLET ONE (04:12)
[2018-01-13] MEDS ORDERED: METHADONE HCL 10 MG TABLET ONE (04:12)
[2018-01-13] MEDS: METHADONE 40 MG, METHADONE 30 MG PO SCH (06:26)
--- NOTE | 2018-01-13 09:13 | PN ---
BHS Progress Note (SOAP) Subjective: C/0 increased (L) Knee pain since a patient fell on knee last night. Pain is achy and a "8". Pain increases when walks. Also c/o increase swelling of (L) knee. Objective: Alert and oriented. (L) knee w/ swelling. No increased erythema or warmth. No crepitus. FROM w/ tenderness. Walking w/a limp. BLE 1+ pitting edema toes to mid calf. Currently on HCTZ. 01/13/18 09:10 01/13/18 09:18 Assessment: (L) knee trauma. Edema HTN 01/13/18 09:13 Plan: Continue rehab. Ice Pack (L) knee Q2H and prn X-ray (L) knee. Ibuprofen . Encourage elevation legs. cANE
[2018-01-13] MEDS: IBUPROFEN 600 MG TABLET (FP) PO PRN ×2 (09:56→21:25)
[2018-01-13] MEDS: HYDROCHLOROTHIAZIDE 25 MG TABLET (FP) PO SCH (09:56)
[2018-01-13] MEDS: PRENATAL VITAMINS W/ FOLIC ACID TABLET (FP) PO SCH (09:56)
[2018-01-13] MEDS: hydrOXYzine PAMOATE 50 MG CAPSULE (FP) PO PRN (21:24)
[2018-01-13] MEDS: THIAMINE HCL 100 MG TABLET (FP) PO SCH (21:24)
[2018-01-14] MEDS ORDERED: METHADONE HCL 10 MG TABLET ONE (06:07)
[2018-01-14] MEDS ORDERED: METHADONE HCL 40 MG DISPERSABLE TABLET ONE (06:07)
[2018-01-14] MEDS ORDERED: METHADONE HCL 10 MG TABLET PO SCH (06:30)
[2018-01-14] MEDS: METHADONE 40 MG, METHADONE 30 MG PO SCH (06:38)
[2018-01-14] MEDS: PRENATAL VITAMINS W/ FOLIC ACID TABLET (FP) PO SCH (09:42)
[2018-01-14] MEDS: HYDROCHLOROTHIAZIDE 25 MG TABLET (FP) PO SCH (09:42)
--- NOTE | 2018-01-14 13:30 | PN ---
BHS Progress Note Note: Vital Signs Temperature 97.6 F 01/14/18 06:43 Pulse Rate 67 01/14/18 10:00 Respiratory Rate 18 01/14/18 10:00 Blood Pressure 139/67 01/14/18 10:00 O2 Sat by Pulse Oximetry (%) x-ray negative for fracture or acute pathology continue to monitor Patient to follow up with PCP
[2018-01-14] MEDS: hydrOXYzine PAMOATE 50 MG CAPSULE (FP) PO PRN (21:37)
[2018-01-14] MEDS: THIAMINE HCL 100 MG TABLET (FP) PO SCH (21:37)
[2018-01-14] MEDS: IBUPROFEN 600 MG TABLET (FP) PO PRN (21:37)
[2018-01-15] MEDS ORDERED: METHADONE HCL 10 MG TABLET ONE (04:34)
[2018-01-15] MEDS ORDERED: METHADONE HCL 40 MG DISPERSABLE TABLET ONE (04:34)
[2018-01-15] MEDS: METHADONE 40 MG, METHADONE 30 MG PO SCH (06:08)
[2018-01-15] MEDS: HYDROCHLOROTHIAZIDE 25 MG TABLET (FP) PO SCH (10:13)
[2018-01-15] MEDS: PRENATAL VITAMINS W/ FOLIC ACID TABLET (FP) PO SCH (10:13)
[2018-01-15] MEDS: IBUPROFEN 600 MG TABLET (FP) PO PRN ×2 (10:14→21:35)
[2018-01-15] MEDS: hydrOXYzine PAMOATE 50 MG CAPSULE (FP) PO PRN (21:35)
[2018-01-15] MEDS: THIAMINE HCL 100 MG TABLET (FP) PO SCH (21:35)
[2018-01-16] MEDS ORDERED: METHADONE HCL 10 MG TABLET ONE (03:15)
[2018-01-16] MEDS ORDERED: METHADONE HCL 40 MG DISPERSABLE TABLET ONE (03:15)
[2018-01-16] MEDS: METHADONE 40 MG, METHADONE 30 MG PO SCH (06:03)
[2018-01-16] MEDS: HYDROCHLOROTHIAZIDE 25 MG TABLET (FP) PO SCH (10:13)
[2018-01-16] MEDS: PRENATAL VITAMINS W/ FOLIC ACID TABLET (FP) PO SCH (10:13)
[2018-01-16] MEDS: IBUPROFEN 600 MG TABLET (FP) PO PRN ×3 (10:14→21:26)
[2018-01-16] MEDS: hydrOXYzine PAMOATE 50 MG CAPSULE (FP) PO PRN (21:26)
[2018-01-16] MEDS: THIAMINE HCL 100 MG TABLET (FP) PO SCH (21:26)
[2018-01-17] MEDS ORDERED: METHADONE HCL 10 MG TABLET ONE (05:29)
[2018-01-17] MEDS ORDERED: METHADONE HCL 40 MG DISPERSABLE TABLET ONE (05:29)
[2018-01-17] MEDS: METHADONE 40 MG, METHADONE 30 MG PO SCH (06:06)
[2018-01-17] MEDS: PRENATAL VITAMINS W/ FOLIC ACID TABLET (FP) PO SCH (09:50)
[2018-01-17] MEDS: HYDROCHLOROTHIAZIDE 25 MG TABLET (FP) PO SCH (09:50)
[2018-01-17] MEDS: IBUPROFEN 600 MG TABLET (FP) PO PRN ×2 (09:51→21:30)
[2018-01-17] MEDS: hydrOXYzine PAMOATE 50 MG CAPSULE (FP) PO PRN (21:29)
[2018-01-17] MEDS: THIAMINE HCL 100 MG TABLET (FP) PO SCH (21:29)
[2018-01-18] MEDS ORDERED: METHADONE HCL 40 MG DISPERSABLE TABLET ONE (04:30)
[2018-01-18] MEDS ORDERED: METHADONE HCL 10 MG TABLET ONE (04:30)
[2018-01-18] MEDS: METHADONE 40 MG, METHADONE 30 MG PO SCH (06:06)
[2018-01-18] MEDS: PRENATAL VITAMINS W/ FOLIC ACID TABLET (FP) PO SCH (10:05)
[2018-01-18] MEDS: HYDROCHLOROTHIAZIDE 25 MG TABLET (FP) PO SCH (10:05)
[2018-01-18] MEDS: IBUPROFEN 600 MG TABLET (FP) PO PRN ×2 (10:06→21:23)
[2018-01-18] MEDS: THIAMINE HCL 100 MG TABLET (FP) PO SCH (21:22)
[2018-01-18] MEDS: hydrOXYzine PAMOATE 50 MG CAPSULE (FP) PO PRN (21:22)
[2018-01-19] MEDS ORDERED: METHADONE HCL 10 MG TABLET ONE (03:18)
[2018-01-19] MEDS ORDERED: METHADONE HCL 40 MG DISPERSABLE TABLET ONE (03:19)
[2018-01-19] MEDS: METHADONE 40 MG, METHADONE 30 MG PO SCH (06:03)
[2018-01-19] MEDS: HYDROCHLOROTHIAZIDE 25 MG TABLET (FP) PO SCH (10:19)
[2018-01-19] MEDS: PRENATAL VITAMINS W/ FOLIC ACID TABLET (FP) PO SCH (10:19)
[2018-01-19] MEDS: IBUPROFEN 600 MG TABLET (FP) PO PRN (10:20)
[2018-01-19] MEDS: hydrOXYzine PAMOATE 50 MG CAPSULE (FP) PO PRN (21:13)
[2018-01-19] MEDS: THIAMINE HCL 100 MG TABLET (FP) PO SCH (21:13)
[2018-01-20] MEDS ORDERED: METHADONE HCL 10 MG TABLET ONE (04:08)
[2018-01-20] MEDS ORDERED: METHADONE HCL 40 MG DISPERSABLE TABLET ONE (04:08)
[2018-01-20] MEDS: METHADONE 40 MG, METHADONE 30 MG PO SCH (06:00)
[2018-01-20] MEDS ORDERED: METHADONE HCL 10 MG TABLET PO SCH (06:00)
[2018-01-20] MEDS: HYDROCHLOROTHIAZIDE 25 MG TABLET (FP) PO SCH (10:31)
[2018-01-20] MEDS: PRENATAL VITAMINS W/ FOLIC ACID TABLET (FP) PO SCH (10:31)
[2018-01-20] MEDS: IBUPROFEN 600 MG TABLET (FP) PO PRN ×2 (10:31→21:24)
[2018-01-20] MEDS: hydrOXYzine PAMOATE 50 MG CAPSULE (FP) PO PRN (21:24)
[2018-01-20] MEDS: THIAMINE HCL 100 MG TABLET (FP) PO SCH (21:24)
[2018-01-21] MEDS ORDERED: METHADONE HCL 10 MG TABLET ONE (03:34)
[2018-01-21] MEDS ORDERED: METHADONE HCL 40 MG DISPERSABLE TABLET ONE (03:34)
[2018-01-21] MEDS: METHADONE 40 MG, METHADONE 30 MG PO SCH (06:02)
[2018-01-21] MEDS: HYDROCHLOROTHIAZIDE 25 MG TABLET (FP) PO SCH (10:03)
[2018-01-21] MEDS: PRENATAL VITAMINS W/ FOLIC ACID TABLET (FP) PO SCH (10:03)
[2018-01-21] MEDS: IBUPROFEN 600 MG TABLET (FP) PO PRN ×2 (10:04→21:30)
[2018-01-21 10:29] VITALS: PULSE 64
--- NOTE | 2018-01-21 11:51 | PN ---
Psychiatric Progress Note Vital Signs: Vital Signs Period Temp Pulse Resp BP Sys/Walker Pulse Ox Last 24 Hr 98.1 F 63-64 18-19 122-123/73-78 Date of Session: 01/21/18 Chief Complaint:: Discharge Note HPI: Patient addressing Opioid Dependence comorbid with Opioid Dependdnce on Agonist Therapy and Alcol-Induced Sleep Disorder ROS: Alcoholic neuropathy, HTN, Obesity, Osteoarthritis Knees were medically managed Current Medications: Active Medications Generic Name Dose Route Start Last Admin Trade Name Freq PRN Reason Stop Dose Admin Acetaminophen 650 mg 01/01/18 11:31 01/03/18 06:07 Tylenol - PO 650 mg Q4H PRN Administration FEVER Al Hydroxide/Mg Hydroxide 30 ml 01/01/18 11:31 Mylanta Oral Suspension - PO Q6H PRN DYSPEPSIA Eucalyptus/Menthol/Phenol/Sorbitol 1 each 01/01/18 11:31 Cepastat Lozenge - MM Q4H PRN SORE THROAT Guaifenesin 10 ml 01/01/18 11:31 Robitussin Dm - PO Q6H PRN COUGH Hydrochlorothiazide 25 mg 01/01/18 12:50 01/21/18 10:03 Hctz - PO 25 mg DAILY SUSAN Administration Hydroxyzine Pamoate 50 mg 01/01/18 11:31 01/20/18 21:24 Vistaril - PO 50 mg Q4H PRN Administration AGITATION Ibuprofen 600 mg 01/13/18 09:03 01/21/18 10:04 Motrin - PO 600 mg Q8H PRN Administration PAIN LEVEL 6-10 Loperamide HCl 4 mg 01/01/18 11:31 Imodium - PO Q6H PRN DIARRHEA Magnesium Citrate 300 ml 01/01/18 11:31 Citroma - PO Q48H PRN CONSTIPATION Magnesium Hydroxide 30 ml 01/01/18 11:31 Milk Of Magnesia - PO DAILY PRN CONSTIPATION Melatonin 5 mg 01/01/18 22:00 01/08/18 21:21 Melatonin PO 5 mg HS PRN Administration INSOMNIA Methadone HCl 40 mg/ Methadone 70 mg 01/20/18 06:00 01/21/18 06:02 HCl 30 mg PO 70 mg DAILY@0600 SUSAN Administration Multivit/Folic Acid/Iron 1 tab 01/02/18 10:00 01/21/18 10:03 Vitamins (Sjr) - PO 1 tab DAILY SUSAN Administration Pseudoephedrine/Triprolidine 1 combo 01/01/18 11:31 Actifed - PO TID PRN NASAL CONGESTION Thiamine HCl 100 mg 01/01/18 22:00 01/20/18 21:24 Vitamin B1 - PO 100 mg HS SUSAN Administration Current Side Effect: No Lab tests ordered: Yes Lab tests reviewed: Yes Provider note:: Patient will complete this program on . He has met his treatment goals and will continue to address his issues in outpatient treatment at [facility]. 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 He is stable for discharge on 01/22/18 Total face to face time:: 35 Mental Status Exam - Mental Status Exam Alert and Oriented to: Time, Place, Person Cognitive Function: Fair Patient Appearance: Well Groomed Mood: Hopeful, Euthymic Affect: Appropriate Patient Behavior: Cooperative Speech Pattern: Clear Voice Loudness: Normal Thought Process: Intact, Goal Oriented Thought Disorder: Not Present Hallucinations: Denies Suicidal Ideation: Denies Homicidal Ideation: Denies Insight/Judgement: Fair Sleep: Fair Appetite: Good Muscle strength/Tone: Normal Gait/Station: Normal Psychiatric Treatment Plan - Problem List (1) Opioid dependence on agonist therapy Current Visit: Yes (2) Substance-induced sleep disorder Current Visit: Yes (3) Alcoholic peripheral neuropathy Current Visit: No (4) HTN (hypertension) Current Visit: No Qualifiers: Hypertension type: essential hypertension Qualified Code(s): I10 - Essential (primary) hypertension (5) Obesity Current Visit: No Qualifiers: Obesity type: due to excess calories Obesity classification: adult class 3 (BMI >= 40) Serious obesity comorbidity presence: unspecified whether serious comorbidity present Body mass index: BMI 40.0-44.9 Qualified Code(s): E66.01 - Morbid (severe) obesity due to excess calories; Z68.41 - Body mass index (BMI) 40.0-44.9, adult Comment: consider bariatric surgery - to f/u with primary (6) Osteoarthritis, knee Current Visit: Yes Qualifiers: Osteoarthritis type: primary Laterality: bilateral Qualified Code(s): M17.0 - Bilateral primary osteoarthritis of knee Initial treatment plan: Patient will be discharged tomorrow and referred to [facility] for outpatient treatment
[2018-01-21] MEDS: THIAMINE HCL 100 MG TABLET (FP) PO SCH (21:30)
[2018-01-21] MEDS: hydrOXYzine PAMOATE 50 MG CAPSULE (FP) PO PRN (21:30)
--- NOTE | 2018-01-22 00:09 | PN ---
BHS Progress Note Note: Pt discharged on 01/21/18 a.m. Rehab completed. Alert o x 3. No acute distress. Vital Signs (72 hours) 01/19/18 01/19/18 01/19/18 03:30 06:40 10:00 Temperature 97.9 F Pulse Rate 63 76 Respiratory 18 20 18 Rate Blood Pressure 137/73 140/70 01/20/18 01/20/18 01/20/18 00:29 03:30 07:16 Temperature 97.1 F L Pulse Rate 67 Respiratory 18 18 18 Rate Blood Pressure 113/75 01/20/18 01/21/18 01/21/18 10:00 00:30 03:30 Temperature Pulse Rate 76 Respiratory 20 18 18 Rate Blood Pressure 135/70 01/21/18 01/21/18 06:47 10:29 Temperature 98.1 F Pulse Rate 63 64 Respiratory 19 Rate Blood Pressure 122/78 123/73 Plan: Follow up with aftercare as discussed with counselor. Follow up with pcp re: comorbid conditions medical management.
[2018-01-22] MEDS ORDERED: METHADONE HCL 10 MG TABLET ONE (03:34)
[2018-01-22] MEDS ORDERED: METHADONE HCL 40 MG DISPERSABLE TABLET ONE (03:34)
[2018-01-22] MEDS: IBUPROFEN 600 MG TABLET (FP) PO PRN (03:54)
[2018-01-22] MEDS: METHADONE 40 MG, METHADONE 30 MG PO SCH (06:04)
[2018-01-22 06:49] VITALS: BP 133/73; TEMP 97.9
[2018-01-22] MEDS: HYDROCHLOROTHIAZIDE 25 MG TABLET (FP) PO SCH (09:56)
[2018-01-22] MEDS: PRENATAL VITAMINS W/ FOLIC ACID TABLET (FP) PO SCH (09:56)
== END 2018-01-22 09:00 | disposition home or self-care (01) | DRG 772 ==
LOC: YASAS 09:37 → Y5N 12:42
PROVIDERS: ADMIT Psychiatry & Neurology Psychiatry; ATTEND Psychiatry & Neurology Psychiatry
PROC: HZ42ZZZ Group Counseling for Substance Abuse Treatment, Cognitive-Behavioral (ICD-10-PCS; principal; 2018-01-01)
DX: F11.20 Opioid dependence, uncomplicated (principal); F19.282 Other psychoactive substance dependence with psychoactive substance-induced sleep disorder; I10 Essential (primary) hypertension; G62.1 Alcoholic polyneuropathy; M17.0 Bilateral primary osteoarthritis of knee; R60.9 Edema, unspecified; G47.00 Insomnia, unspecified; M25.562 Pain in left knee; S89.82XA Other specified injuries of left lower leg, initial encounter; W50.0XXA Accidental hit or strike by another person, initial encounter; Y93.89 Activity, other specified; Y92.239 Unspecified place in hospital as the place of occurrence of the external cause; E66.01 Morbid (severe) obesity due to excess calories; Z68.42 Body mass index [BMI] 45.0-49.9, adult
CPT/HCPCS: 36415; 73562-TC-LT-FY; 80053; 81003; 81015; 85027; 86593; 93005; 93010

== ENCOUNTER 2018-09-10 10:46 | Inpatient (IN) | payer OTHER ==
[2018-09-10 13:17] VITALS: BMI 43.7
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
[2018-09-10] MEDS ORDERED: cloNIDine HCL 0.1 MG TABLET PO PRN (14:34)
[2018-09-10] MEDS ORDERED: MENTHOL/PHENOL 1 EACH UD MM PRN (14:40)
[2018-09-10] MEDS ORDERED: ACETAMINOPHEN 325 MG TABLET (FP) PO PRN ×2 (14:40)
[2018-09-10] MEDS ORDERED: MAG HYDROX/AL HYDROX/SIMETH 30 ML UNIT-DOSE CUP PO PRN (14:40)
[2018-09-10] MEDS ORDERED: METHOCARBAMOL 500 MG TABLET PO PRN (14:40)
[2018-09-10] MEDS ORDERED: BISMUTH SUBSALICYLATE 262 MG/15 ML BTL PO PRN (14:40)
[2018-09-10] MEDS ORDERED: MELATONIN 5 MG TABLETS PO PRN (14:40)
[2018-09-10] MEDS ORDERED: MAGNESIUM HYDROX 2400MG/30ML ORAL SUSPENSION 30 ML CUP PO PRN (14:40)
[2018-09-10] MEDS ORDERED: MAGNESIUM CITRATE 300 ML BOTTLE PO PRN (14:40)
[2018-09-10] MEDS ORDERED: METHADONE HCL 10 MG TABLET (FOR DETOX USE ONLY) PO ONE ×2 (15:45→23:00)
[2018-09-10] MEDS: chlordiazePOXIDE HCL 25 MG CAPSULE PO PRN (15:48)
[2018-09-10 16:39] LABS: ALBUMIN 3.7 g/dl (3.4-5.0); BILIRUBIN,TOTAL 0.2 mg/dL (0.2-1); CALCIUM 8.7 mg/dL (8.5-10.1); CREATININE 0.8 mg/dL (0.55-1.3); POTASSIUM 3.6 mmol/L (3.5-5.1); TOT PROT 7.3 g/dl (6.4-8.2)
[2018-09-10 16:41] LABS: HEMATOCRIT 37.8 % (35.4-49); HEMOGLOBIN 12.4 GM/dL (11.7-16.9); MCH 28.7 pg (25.7-33.7); MCHC 32.7 g/dl (32.0-35.9); MEAN CELL VOLUME 87.8 fl (80-96); MEAN PLT VOLUME 8.2 fl (7.5-11.1); PLATELET COUNT 242 K/MM3 (134-434); RBC 4.31 M/mm3 (4.00-5.60); RDW 15.7 % (11.9-15.9); WHITE BLOOD COUNT 7.8 K/mm3 (4.0-10.0)
[2018-09-10 16:45] LABS: PH,URINE 5.5 (5.0-8.0); URINE APPEARANCE CLEAR; URINE BILIRUBIN NEGATIVE (NEGATIVE); URINE COLOR YELLOW; URINE GLUCOSE (UA) NEGATIVE (NEGATIVE); URINE KETONE TRACE (NEGATIVE); URINE LEUK ESTERASE NEGATIVE (NEGATIVE); URINE NITRITE NEGATIVE (NEGATIVE); URINE PROTEIN NEGATIVE (NEGATIVE); URINE UROBILINOGEN 0.2 mg/dL (0.2-1.0)
[2018-09-10] MEDS: chlordiazePOXIDE HCL 25 MG CAPSULE PO SCH ×2 (17:47→22:19)
[2018-09-10] MEDS: THIAMINE HCL 100 MG TABLET (FP) PO SCH (22:19)
[2018-09-11] MEDS: chlordiazePOXIDE HCL 25 MG CAPSULE PO SCH ×4 (06:51→23:23)
--- NOTE | 2018-09-11 09:47 | PN ---
[facility] Progress Note Note: called to evaluate patient with unwitnessed fall alert,no head injury stated slid off the bed onto knees,please see nurse's report on examination alert,oriented x3 pupil equal and react to light no neck pain,movement of neck no limitation heart normal heart sound lung clear abdomen soft,no distension,no pain or tenderness extremities swelling of both knees left more than right,pain on movement, ambulation without difficulty patient had history of osteoarthritis of left knee with chronic swelling also had history of chronic low back pain with herniated disc ,has been under the care of medical provider and orthopedist at [facility] for 15 years including physical therapy impression unwitnessed fall initiated fall protocol 1 to er for evaluation and treatment,patient refused close monitoring
--- NOTE | 2018-09-11 09:52 | PN ---
S CIWA - CIWA Score Nausea/Vomitin Muscle Tremors: 2 Anxiety: 2 Agitation: 2 Paroxysmal Sweats: 1-Minimal Palms Moist Orientation: 0-Oriented Tacttile Disturbances: 1-Very Mild Itch/Numbness Auditory Disturbances: 1-Very Mild Visual Disturbances: 0-None Headache: 2-Mild CIWA-Ar Total Score: 13 BHS COWS - Scale Resting Pulse: 0= [place] 80 or Below Sweatin= Chills/Flushing Restless Observation: 1= Difficult to Sit Still Pupil Size: 1= Pupils >than Normal Bone or Joint Aches: 2= Severe Diffuse Aches Runny Nose/ Eye Tearin= Nasal Congestion GI Upset > 30mins: 2= Nausea/Diarrhea Tremor Observation of Outstretched Hands: 2= Slight Tremor Visible Yawning Observation: 1= 1-2x During Session Anxiety or Irritability: 2=Irritable/Anxious Goose Flesh Skin: 0=Smooth Skin COWS Score: 13 BHS Progress Note (SOAP) Subjective: alert,irritable,anxious,interrupted sleep,tremor,pain in the body history of fall unwithnessed this morning Objective: 09/11/18 09:51 Vital Signs Temperature 98.1 F 09/11/18 09:12 Pulse Rate 65 09/11/18 09:12 Respiratory Rate 16 09/11/18 09:12 Blood Pressure 117/69 09/11/18 09:12 O2 Sat by Pulse Oximetry (%) 09/11/18 09:52 Laboratory Last Values WBC 7.8 K/mm3 (4.0-10.0) 09/10/18 14:30 RBC 4.31 M/mm3 (4.00-5.60) 09/10/18 14:30 Hgb 12.4 GM/dL (11.7-16.9) 09/10/18 14:30 Hct 37.8 % (35.4-49) 09/10/18 14:30 MCV 87.8 fl (80-96) 09/10/18 14:30 MCH 28.7 pg (25.7-33.7) 09/10/18 14:30 MCHC 32.7 g/dl (32.0-35.9) 09/10/18 14:30 RDW 15.7 % (11.9-15.9) 09/10/18 14:30 Plt Count 242 K/MM3 (134-434) 09/10/18 14:30 MPV 8.2 fl (7.5-11.1) 09/10/18 14:30 Sodium 141 mmol/L (136-145) 09/10/18 14:30 Potassium 3.6 mmol/L (3.5-5.1) 09/10/18 14:30 Chloride 105 mmol/L (98-107) 09/10/18 14:30 Carbon Dioxide 31 mmol/L (21-32) 09/10/18 14:30 Anion Gap 4 MMOL/L (8-16) L 09/10/18 14:30 BUN 11 mg/dL (7-18) 09/10/18 14:30 Creatinine 0.8 mg/dL (0.55-1.3) 09/10/18 14:30 Est GFR (CKD-EPI)AfAm 119.04 09/10/18 14:30 Est GFR (CKD-EPI)NonAf 102.71 09/10/18 14:30 POC Glucometer 111 UNITS (80-120) 09/11/18 06:58 Random Glucose 106 mg/dL (74-106) 09/10/18 14:30 Calcium 8.7 mg/dL (8.5-10.1) 09/10/18 14:30 Total Bilirubin 0.2 mg/dL (0.2-1) 09/10/18 14:30 AST 28 U/L (15-37) 09/10/18 14:30 ALT 30 U/L (13-61) 09/10/18 14:30 Alkaline Phosphatase 83 U/L (45-117) 09/10/18 14:30 Total Protein 7.3 g/dl (6.4-8.2) 09/10/18 14:30 Albumin 3.7 g/dl (3.4-5.0) 09/10/18 14:30 Urine Color Yellow 09/10/18 15:40 Urine Appearance Clear 09/10/18 15:40 Urine pH 5.5 (5.0-8.0) D 09/10/18 15:40 Ur Specific [place] 1.032 (1.010-1.035) 09/10/18 15:40 Urine Protein Negative (NEGATIVE) 09/10/18 15:40 Urine Glucose (UA) Negative (NEGATIVE) 09/10/18 15:40 Urine Ketones Trace (NEGATIVE) H 09/10/18 15:40 Urine Blood Negative (NEGATIVE) 09/10/18 15:40 Urine Nitrite Negative (NEGATIVE) 09/10/18 15:40 Urine Bilirubin Negative (NEGATIVE) 09/10/18 15:40 Urine Urobilinogen 0.2 mg/dL (0.2-1.0) 09/10/18 15:40 Ur Leukocyte Esterase Negative (NEGATIVE) 09/10/18 15:40 RPR Titer Nonreactive (NONREACTIVE) 09/10/18 14:30 Assessment: 09/11/18 09:53 withdrawal symptom Plan: continue detox,close monitoring,fall protocol 1
[2018-09-11] MEDS ORDERED: METHADONE HCL 5 MG TABLET (FOR DETOX USE ONLY) PO ONE (10:00)
[2018-09-11] MEDS: PRENATAL VITAMINS W/ FOLIC ACID TABLET (FP) PO SCH (10:51)
[2018-09-11] MEDS: IBUPROFEN 400 MG TABLET (FP) PO PRN (10:52)
[2018-09-11] MEDS: THIAMINE HCL 100 MG TABLET (FP) PO SCH (23:23)
[2018-09-12] MEDS: chlordiazePOXIDE HCL 25 MG CAPSULE PO SCH ×2 (06:08→10:18)
--- NOTE | 2018-09-12 09:30 | PN ---
BHS COWS - Scale Resting Pulse: 0= [place] 80 or Below Sweatin= Chills/Flushing Restless Observation: 1= Difficult to Sit Still Pupil Size: 1= Pupils >than Normal Bone or Joint Aches: 2= Severe Diffuse Aches Runny Nose/ Eye Tearin= Nasal Congestion GI Upset > 30mins: 2= Nausea/Diarrhea Tremor Observation of Outstretched Hands: 2= Slight Tremor Visible Yawning Observation: 1= 1-2x During Session Anxiety or Irritability: 2=Irritable/Anxious Goose Flesh Skin: 0=Smooth Skin COWS Score: 13 BHS Progress Note (SOAP) Subjective: alert,irritable,anxious,interrupted sleep,ambulation on hallway and dining room, pain in the body Objective: 09/12/18 09:28 Vital Signs Temperature 98.6 F 09/12/18 09:14 Pulse Rate 79 09/12/18 09:14 Respiratory Rate 18 09/12/18 09:14 Blood Pressure 145/71 09/12/18 09:14 O2 Sat by Pulse Oximetry (%) 09/12/18 09:28 Laboratory Last Values WBC 7.8 K/mm3 (4.0-10.0) 09/10/18 14:30 RBC 4.31 M/mm3 (4.00-5.60) 09/10/18 14:30 Hgb 12.4 GM/dL (11.7-16.9) 09/10/18 14:30 Hct 37.8 % (35.4-49) 09/10/18 14:30 MCV 87.8 fl (80-96) 09/10/18 14:30 MCH 28.7 pg (25.7-33.7) 09/10/18 14:30 MCHC 32.7 g/dl (32.0-35.9) 09/10/18 14:30 RDW 15.7 % (11.9-15.9) 09/10/18 14:30 Plt Count 242 K/MM3 (134-434) 09/10/18 14:30 MPV 8.2 fl (7.5-11.1) 09/10/18 14:30 Sodium 141 mmol/L (136-145) 09/10/18 14:30 Potassium 3.6 mmol/L (3.5-5.1) 09/10/18 14:30 Chloride 105 mmol/L (98-107) 09/10/18 14:30 Carbon Dioxide 31 mmol/L (21-32) 09/10/18 14:30 Anion Gap 4 MMOL/L (8-16) L 09/10/18 14:30 BUN 11 mg/dL (7-18) 09/10/18 14:30 Creatinine 0.8 mg/dL (0.55-1.3) 09/10/18 14:30 Est GFR (CKD-EPI)AfAm 119.04 09/10/18 14:30 Est GFR (CKD-EPI)NonAf 102.71 09/10/18 14:30 POC Glucometer 98 UNITS (80-120) 09/12/18 06:03 Random Glucose 106 mg/dL (74-106) 09/10/18 14:30 Calcium 8.7 mg/dL (8.5-10.1) 09/10/18 14:30 Total Bilirubin 0.2 mg/dL (0.2-1) 09/10/18 14:30 AST 28 U/L (15-37) 09/10/18 14:30 ALT 30 U/L (13-61) 09/10/18 14:30 Alkaline Phosphatase 83 U/L (45-117) 09/10/18 14:30 Total Protein 7.3 g/dl (6.4-8.2) 09/10/18 14:30 Albumin 3.7 g/dl (3.4-5.0) 09/10/18 14:30 Urine Color Yellow 09/10/18 15:40 Urine Appearance Clear 09/10/18 15:40 Urine pH 5.5 (5.0-8.0) D 09/10/18 15:40 Ur Specific [place] 1.032 (1.010-1.035) 09/10/18 15:40 Urine Protein Negative (NEGATIVE) 09/10/18 15:40 Urine Glucose (UA) Negative (NEGATIVE) 09/10/18 15:40 Urine Ketones Trace (NEGATIVE) H 09/10/18 15:40 Urine Blood Negative (NEGATIVE) 09/10/18 15:40 Urine Nitrite Negative (NEGATIVE) 09/10/18 15:40 Urine Bilirubin Negative (NEGATIVE) 09/10/18 15:40 Urine Urobilinogen 0.2 mg/dL (0.2-1.0) 09/10/18 15:40 Ur Leukocyte Esterase Negative (NEGATIVE) 09/10/18 15:40 RPR Titer Nonreactive (NONREACTIVE) 09/10/18 14:30 Assessment: 09/12/18 09:29 withdrawal symptom Plan: continue detox
[2018-09-12] MEDS ORDERED: METHADONE HCL 10 MG TABLET (FOR DETOX USE ONLY) PO ONE (10:00)
[2018-09-12] MEDS: PRENATAL VITAMINS W/ FOLIC ACID TABLET (FP) PO SCH (10:18)
[2018-09-12] MEDS: hydrOXYzine PAMOATE 25 MG CAPSULE (FP) PO PRN ×2 (12:42→23:08)
[2018-09-12] MEDS: IBUPROFEN 400 MG TABLET (FP) PO PRN (12:42)
[2018-09-12] MEDS ORDERED: chlordiazePOXIDE HCL 10 MG CAPSULE PO PRN (17:00)
[2018-09-12] MEDS: chlordiazePOXIDE HCL 10 MG CAPSULE PO SCH ×2 (18:57→23:08)
[2018-09-12] MEDS: chlordiazePOXIDE HCL 25 MG CAPSULE PO PRN (20:14)
[2018-09-12] MEDS: THIAMINE HCL 100 MG TABLET (FP) PO SCH (23:08)
[2018-09-13] MEDS ORDERED: METHADONE HCL 5 MG TABLET (FOR DETOX USE ONLY) PO ONE (06:00)
[2018-09-13] MEDS: chlordiazePOXIDE HCL 10 MG CAPSULE PO SCH (06:33)
--- NOTE | 2018-09-13 09:19 | DS ---
[facility] Detox Discharge Summary Admission Date: 09/10/18 Discharge Date: 09/13/18 - History Present History: Alcohol Dependence, Opioid Dependence - Physical Exam Results Vital Signs: Vital Signs Temperature 96.8 F L 09/13/18 06:47 Pulse Rate 69 09/13/18 06:47 Respiratory Rate 20 09/13/18 06:47 Blood Pressure 137/67 09/13/18 06:47 O2 Sat by Pulse Oximetry (%) - Treatment Hospital Course: Detox Protocol Followed, Detoxed Safely, Responded well, Discharged Condition Good, Rehab Referral Accepted - Medication Discharge Medications: Ambulatory Orders Hydrochlorothiazide 25 mg PO DAILY #30 tablet 01/21/18 Tramadol HCl 50 mg PO PRN 09/10/18 - Diagnosis (1) Alcohol dependence with uncomplicated withdrawal Current Visit: Yes Status: Chronic (2) Hepatitis C Current Visit: Yes Status: Chronic Qualifiers: Viral hepatitis chronicity: chronic Hepatic coma status: without hepatic coma Qualified Code(s): B18.2 - Chronic viral hepatitis C (3) Herniated lumbar intervertebral disc Current Visit: Yes Status: Acute (4) Low back pain Current Visit: Yes Status: Acute (5) Opioid dependence with withdrawal Current Visit: Yes Status: Chronic (6) Alcoholic peripheral neuropathy Current Visit: No Status: Acute (7) Anxiety Current Visit: No Status: Acute (8) Bilateral lower extremity edema Current Visit: No Status: Acute (9) Knee pain, acute Current Visit: No Status: Acute Qualifiers: Laterality: left Qualified Code(s): M25.562 - Pain in left knee (10) Opiate dependence Current Visit: No Status: Acute (11) Substance-induced sleep disorder Current Visit: No Status: Acute (12) Alcohol dependence Current Visit: No Status: Chronic Qualifiers: Substance use status: uncomplicated Qualified Code(s): F10.20 - Alcohol dependence, uncomplicated (13) HTN (hypertension) Current Visit: No Status: Chronic Qualifiers: Hypertension type: essential hypertension Qualified Code(s): I10 - Essential (primary) hypertension (14) Methadone maintenance therapy patient Current Visit: No Status: Chronic (15) Obesity Current Visit: No Status: Chronic Qualifiers: Obesity type: due to excess calories Obesity classification: adult class 3 (BMI >= 40) Serious obesity comorbidity presence: unspecified whether serious comorbidity present Body mass index: BMI 40.0-44.9 Qualified Code(s): E66.01 - Morbid (severe) obesity due to excess calories; Z68.41 - Body mass index (BMI) 40.0-44.9, adult (16) Opiate dependence, continuous Current Visit: No Status: Chronic (17) Opioid dependence on agonist therapy Current Visit: No Status: Chronic (18) Osteoarthritis, knee Current Visit: No Status: Chronic Qualifiers: Osteoarthritis type: primary Laterality: bilateral Qualified Code(s): M17.0 - Bilateral primary osteoarthritis of knee (19) Cocaine dependence Current Visit: No Status: Inactive - AMA Did Patient Leave Against Medical Advice: No (going home will call for rehab)
[2018-09-13 09:27] VITALS: BP 140/80; PULSE 84; TEMP 97.1
[2018-09-13] MEDS ORDERED: chlordiazePOXIDE HCL 10 MG CAPSULE PO SCH (17:00)
== END 2018-09-13 09:09 | disposition home or self-care (01) | DRG 773 ==
LOC: YASAS 10:46 → Y6N 14:54
PROVIDERS: ADMIT Surgery; ATTEND Surgery
PROC: HZ2ZZZZ Detoxification Services for Substance Abuse Treatment (ICD-10-PCS; principal; 2018-09-10)
DX: F10.230 Alcohol dependence with withdrawal, uncomplicated (principal); F11.20 Opioid dependence, uncomplicated; F14.20 Cocaine dependence, uncomplicated; F19.282 Other psychoactive substance dependence with psychoactive substance-induced sleep disorder; F41.9 Anxiety disorder, unspecified; G62.1 Alcoholic polyneuropathy; I10 Essential (primary) hypertension; E11.9 Type 2 diabetes mellitus without complications; M17.0 Bilateral primary osteoarthritis of knee; M51.26 Other intervertebral disc displacement, lumbar region; R60.0 Localized edema; E66.9 Obesity, unspecified; Z68.41 Body mass index [BMI] 40.0-44.9, adult; B19.20 Unspecified viral hepatitis C without hepatic coma
CPT/HCPCS: 36415; 80053; 81003; 82962; 85027; 86593; J0735

== ENCOUNTER 2018-09-15 09:21 | Inpatient (IN) | payer OTHER ==
[2018-09-15] MEDS ORDERED: MENTHOL/PHENOL 1 EACH UD MM PRN (12:33)
[2018-09-15] MEDS ORDERED: P-EPHED 60MG/TRIPROLIDI 2.5MG TABLET PO PRN (12:33)
[2018-09-15] MEDS ORDERED: MAGNESIUM HYDROX 2400MG/30ML ORAL SUSPENSION 30 ML CUP PO PRN (12:33)
[2018-09-15] MEDS ORDERED: MAGNESIUM CITRATE 300 ML BOTTLE PO PRN (12:33)
[2018-09-15] MEDS ORDERED: LOPERAMIDE HCL 2 MG CAPSULE PO PRN (12:33)
[2018-09-15] MEDS ORDERED: guaiFENesin 200 MG/10 ML 10 ML UNIT-DOSE CUPS PO PRN (12:33)
[2018-09-15] MEDS ORDERED: ACETAMINOPHEN 325 MG TABLET (FP) PO PRN (12:33)
--- NOTE | 2018-09-15 12:33 | HP ---
[facility] Rehab Assess/Revision - Admission History Admitted to Rehab from: [facility] Date of Admission to Rehab: 09/15/18 - Vital signs Vital Signs: Vital Signs Period Temp Pulse Resp BP Sys/Walker Pulse Ox Last 24 Hr 98.5 F 84 17 142/69 - Findings Detox History & Physical reviewed: Yes Concur with findings: Yes Comments/Additional Findings: for rehab as protocol,patient completed detoxx from 09/10/18 to 09/13/18,for rehab as protocol Inpatient Rehab Admission - Rehab Decision to Admit Inpatient rehab admission?: Yes - Initial Determination Are CD services needed?: Yes Free of communicable disease: Yes Not in need of hospitalization: Yes - Rehab Admission Criteria Previous failed treatment: Yes Poor recovery environment: Yes Comorbidities: Yes Lacks judgement: No Patient is meeting Inpatient Rehab admission criteria:: Yes
[2018-09-15 12:55] VITALS: BMI 44.9
[2018-09-15] MEDS: hydrOXYzine PAMOATE 50 MG CAPSULE (FP) PO PRN (19:45)
[2018-09-15] MEDS: METHOCARBAMOL 500 MG TABLET PO PRN (22:01)
[2018-09-15] MEDS: THIAMINE HCL 100 MG TABLET (FP) PO SCH (22:01)
[2018-09-16] MEDS: PRENATAL VITAMINS W/ FOLIC ACID TABLET (FP) PO SCH (10:21)
[2018-09-16] MEDS: hydrOXYzine PAMOATE 50 MG CAPSULE (FP) PO PRN ×2 (12:00→21:13)
[2018-09-16] MEDS: THIAMINE HCL 100 MG TABLET (FP) PO SCH (21:13)
[2018-09-17] MEDS: hydrOXYzine PAMOATE 50 MG CAPSULE (FP) PO PRN ×3 (06:34→15:41)
[2018-09-17] MEDS: MAG HYDROX/AL HYDROX/SIMETH 30 ML UNIT-DOSE CUP PO PRN (10:13)
[2018-09-17] MEDS: PRENATAL VITAMINS W/ FOLIC ACID TABLET (FP) PO SCH (10:13)
[2018-09-17] MEDS: IBUPROFEN 600 MG TABLET (FP) PO PRN (10:14)
[2018-09-17] MEDS: METHOCARBAMOL 500 MG TABLET PO PRN (15:41)
[2018-09-17] MEDS: THIAMINE HCL 100 MG TABLET (FP) PO SCH (23:23)
[2018-09-18] MEDS: IBUPROFEN 600 MG TABLET (FP) PO PRN (07:53)
[2018-09-18] MEDS: hydrOXYzine PAMOATE 50 MG CAPSULE (FP) PO PRN ×4 (07:53→21:48)
[2018-09-18] MEDS: METHOCARBAMOL 500 MG TABLET PO PRN ×2 (07:53→14:41)
--- NOTE | 2018-09-18 09:52 | PN ---
"S CIWA - CIWA Score Nausea/Vomitin-Mild Nausea/No Vomiting Muscle Tremors: 3 Anxiety: 0-No Anxiety, at Ease Agitation: 0-Normal Activity Paroxysmal Sweats: 7-Drenching Sweats Orientation: 0-Oriented Tacttile Disturbances: 1-Very Mild Itch/Numbness Auditory Disturbances: 0-None Visual Disturbances: 0-None Headache: 0-None Present CIWA-Ar Total Score: 12 BHS COWS - Scale Resting Pulse: 0= [place] 80 or Below Sweatin= Streaming Sweat Restless Observation: 0= Sits Still Pupil Size: 0= Normal to Room Light Bone or Joint Aches: 2= Severe Diffuse Aches Runny Nose/ Eye Tearin= Constantly Teary/Runny GI Upset > 30mins: 2= Nausea/Diarrhea Tremor Observation of Outstretched Hands: 2= Slight Tremor Visible Yawning Observation: 0= None Anxiety or Irritability: 0= None Goose Flesh Skin: 0=Smooth Skin COWS Score: 14 BHS Progress Note (SOAP) Subjective: Patient reports that he is still feeling like he is withdrawing. Was using ETOH and Heroin, believes the heroin was laced with fentanyl. Client has used suboxone in the past, but feels it was ineffective. Objective: See CIWA/COWS for withdrawal evaluation. Lungs clear, heart rate regular, abd obese, soft, non-tender, +BS, neurologically intact. Diana Barfield | Reference #: [id number] Patient Name: Cholo Drew Date: 1965 Address: [address] [place] [address] Sex: Male Rx Written Rx Dispensed Drug Quantity Days Supply Prescriber Name 08/19/2018 08/22/2018 tramadol hcl 50 mg tablet 28 7 Flaquito Pandey MD Patient Name: Cholo Drew Date: 1965 Address: [address] [place] [address] Sex: Male Rx Written Rx Dispensed Drug Quantity Days Supply Prescriber Name 08/10/2018 08/11/2018 tramadol hcl 50 mg tablet 28 7 Jayro, Kemi 07/02/2018 07/02/2018 tramadol hcl 50 mg tablet 60 15 Jayro, Kemi Patient Name: Cholo Drew Date: 1965 Address: [address] [place] [id number] Sex: Male Rx Written Rx Dispensed Drug Quantity Days Supply Prescriber Name 02/12/2018 02/12/2018 chlordiazepoxide 25 mg capsule 26 5 Jovanny Odonnell | Reference #: [id number] States Searched: [place], [place], [place], [place] -no prescriptions found. 09/18/18 09:57 09/18/18 10:02 Assessment: Withdrawal symptoms 09/18/18 10:05 Plan: Encouraged client to take vistaril and roboxin as prescribed, will add medication for abd discomfort. Discussed use of suboxone for withdrawal symptoms. Will continue to monitor, will draw urine tox."
[2018-09-18] MEDS ORDERED: BISMUTH SUBSALICYLATE 524 MG/30 ML UD PO PRN (10:07)
[2018-09-18] MEDS: PRENATAL VITAMINS W/ FOLIC ACID TABLET (FP) PO SCH (10:39)
[2018-09-18] MEDS: THIAMINE HCL 100 MG TABLET (FP) PO SCH (21:47)
[2018-09-18] MEDS: MELATONIN 5 MG TABLETS PO PRN (21:48)
[2018-09-19] MEDS: hydrOXYzine PAMOATE 50 MG CAPSULE (FP) PO PRN ×3 (06:08→21:13)
[2018-09-19] MEDS: METHOCARBAMOL 500 MG TABLET PO PRN ×3 (06:08→21:13)
[2018-09-19] MEDS: PRENATAL VITAMINS W/ FOLIC ACID TABLET (FP) PO SCH (09:48)
[2018-09-19] MEDS: MAG HYDROX/AL HYDROX/SIMETH 30 ML UNIT-DOSE CUP PO PRN (09:49)
--- NOTE | 2018-09-19 15:41 | PN ---
S Progress Note Note: Patient urine tox + mtd/bzo. Patient s/p detox for heroin dependence. Would like to consider Suboxone MAT and advised to discussed long goods drier placement with counselor prior to starting treatment. Patient agrees with plan and will inform provider of his decision. Vital Signs Temperature 98.3 F 09/19/18 07:10 Pulse Rate 58 L 09/19/18 07:10 Respiratory Rate 18 09/19/18 07:10 Blood Pressure 124/84 09/19/18 07:10 O2 Sat by Pulse Oximetry (%)
[2018-09-19] MEDS: THIAMINE HCL 100 MG TABLET (FP) PO SCH (21:12)
[2018-09-19] MEDS: MELATONIN 5 MG TABLETS PO PRN (21:13)
[2018-09-20] MEDS: hydrOXYzine PAMOATE 50 MG CAPSULE (FP) PO PRN ×3 (06:31→21:24)
[2018-09-20] MEDS: PRENATAL VITAMINS W/ FOLIC ACID TABLET (FP) PO SCH (09:54)
[2018-09-20] MEDS: METHOCARBAMOL 500 MG TABLET PO PRN ×2 (09:55→21:24)
[2018-09-20] MEDS: THIAMINE HCL 100 MG TABLET (FP) PO SCH (21:24)
[2018-09-20] MEDS: MELATONIN 5 MG TABLETS PO PRN (21:24)
[2018-09-21] MEDS: PRENATAL VITAMINS W/ FOLIC ACID TABLET (FP) PO SCH (09:41)
[2018-09-21] MEDS: hydrOXYzine PAMOATE 50 MG CAPSULE (FP) PO PRN (09:41)
[2018-09-21] MEDS: THIAMINE HCL 100 MG TABLET (FP) PO SCH (21:18)
[2018-09-21] MEDS: MELATONIN 5 MG TABLETS PO PRN (21:19)
[2018-09-22] MEDS: PRENATAL VITAMINS W/ FOLIC ACID TABLET (FP) PO SCH (10:49)
--- NOTE | 2018-09-22 11:05 | PN ---
BHS COWS - Scale Resting Pulse: 0= [place] 80 or Below Sweatin= No chills or Flushing Restless Observation: 1= Difficult to Sit Still Pupil Size: 0= Normal to Room Light Bone or Joint Aches: 2= Severe Diffuse Aches Runny Nose/ Eye Tearin= Runny Nose/Eyes GI Upset > 30mins: 0= None Tremor Observation of Outstretched Hands: 0= None Yawning Observation: 0= None Anxiety or Irritability: 2=Irritable/Anxious Goose Flesh Skin: 0=Smooth Skin COWS Score: 7 BHS Progress Note (SOAP) Subjective: PATIENT SEEN FOR SUBOXONE MAT FOR OPIOD USE DISORDER. PATIENT HAS HX OF SNIFFING ONE BUNDLE OF HEROIN DAILY AND COMPLETED DETOX AT [facility] PRIOR TO BEING ADMITTED TO REHAB. PATIENT C/O BODY ACHES, RUNNY NOSE AND RESTLESSNESS/ANXIETY. CONNECT BY COUNSELOR MALIKA LOVE TO [facility] FOR CORRECTION TREATMENT ONCE HE COMPLETES REHAB. Vital Signs (72 hours) 09/20/18 09/20/18 09/20/18 00:30 03:30 07:29 Temperature 97.2 F L Pulse Rate 55 L Respiratory 16 16 18 Rate Blood Pressure 132/74 09/21/18 09/21/18 09/21/18 00:30 03:30 06:52 Temperature Pulse Rate Respiratory 16 16 16 Rate Blood Pressure 09/22/18 09/22/18 09/22/18 00:30 03:30 06:42 Temperature 98.3 F Pulse Rate 64 Respiratory 18 18 18 Rate Blood Pressure 133/84 Objective: 09/22/18 11:05 PE: ALERT AND ORIENTED X 3 SKIN WARM AND DRY +PERRLA, EOMS INTACT BL + NASAL CONGESTION, TEARING OF EYES EXT NO VISIBLE TREMORS, AMB AD ELDER RESTLESSNESS, ANXIOUS Assessment: 09/22/18 11:05 A/P: SUBOXONE MAT OPIOD USE DISORDER Plan: WILL ORDER SUBOXONE 4MG NOW, THEN 4MG AT 8PM START 8MG DAILY TOMORROW MORNING CONTINUE APAP/IBU PRN FOR BODY ACHES ACTIFED FOR NASAL DECONGESTION ENCOURAGE FLUIDS MONITOR CLINICALLY
[2018-09-22] MEDS ORDERED: BUPRENORPHINE/NALOXONE 2 MG/0.5 MG FILM PACKET SL ONE ×2 (11:15→20:00)
[2018-09-22] MEDS: THIAMINE HCL 100 MG TABLET (FP) PO SCH (22:43)
[2018-09-22] MEDS: MELATONIN 5 MG TABLETS PO PRN (22:43)
[2018-09-23] MEDS: PRENATAL VITAMINS W/ FOLIC ACID TABLET (FP) PO SCH (09:33)
[2018-09-23] MEDS: BUPRENORPHINE/NALOXONE 8 MG/2 MG FILM PACKET SL SCH (09:33)
[2018-09-23] MEDS: hydrOXYzine PAMOATE 50 MG CAPSULE (FP) PO PRN (14:56)
[2018-09-23] MEDS: MELATONIN 5 MG TABLETS PO PRN (21:32)
[2018-09-23] MEDS: THIAMINE HCL 100 MG TABLET (FP) PO SCH (21:33)
[2018-09-24] MEDS: hydrOXYzine PAMOATE 50 MG CAPSULE (FP) PO PRN ×2 (09:44→21:14)
[2018-09-24] MEDS: PRENATAL VITAMINS W/ FOLIC ACID TABLET (FP) PO SCH (09:44)
[2018-09-24] MEDS: BUPRENORPHINE/NALOXONE 8 MG/2 MG FILM PACKET SL SCH (09:44)
[2018-09-24] MEDS: MELATONIN 5 MG TABLETS PO PRN (21:14)
[2018-09-24] MEDS: THIAMINE HCL 100 MG TABLET (FP) PO SCH (21:56)
[2018-09-25] MEDS: hydrOXYzine PAMOATE 50 MG CAPSULE (FP) PO PRN ×2 (07:57→21:58)
[2018-09-25] MEDS: PRENATAL VITAMINS W/ FOLIC ACID TABLET (FP) PO SCH (09:42)
[2018-09-25] MEDS: BUPRENORPHINE/NALOXONE 8 MG/2 MG FILM PACKET SL SCH (09:42)
[2018-09-25] MEDS: MELATONIN 5 MG TABLETS PO PRN (21:58)
[2018-09-25] MEDS: THIAMINE HCL 100 MG TABLET (FP) PO SCH (21:58)
[2018-09-26] MEDS: hydrOXYzine PAMOATE 50 MG CAPSULE (FP) PO PRN ×3 (07:33→17:41)
[2018-09-26] MEDS: PRENATAL VITAMINS W/ FOLIC ACID TABLET (FP) PO SCH (09:47)
[2018-09-26] MEDS: BUPRENORPHINE/NALOXONE 8 MG/2 MG FILM PACKET SL SCH (09:47)
[2018-09-26] MEDS: MELATONIN 5 MG TABLETS PO PRN (21:19)
[2018-09-26] MEDS: THIAMINE HCL 100 MG TABLET (FP) PO SCH (21:19)
[2018-09-27] MEDS: hydrOXYzine PAMOATE 50 MG CAPSULE (FP) PO PRN ×3 (07:58→21:15)
[2018-09-27] MEDS: PRENATAL VITAMINS W/ FOLIC ACID TABLET (FP) PO SCH (09:59)
[2018-09-27] MEDS: BUPRENORPHINE/NALOXONE 8 MG/2 MG FILM PACKET SL SCH (09:59)
[2018-09-27] MEDS: MELATONIN 5 MG TABLETS PO PRN (21:15)
[2018-09-27] MEDS: THIAMINE HCL 100 MG TABLET (FP) PO SCH (21:16)
[2018-09-28] MEDS: hydrOXYzine PAMOATE 50 MG CAPSULE (FP) PO PRN ×3 (07:39→21:47)
[2018-09-28] MEDS: PRENATAL VITAMINS W/ FOLIC ACID TABLET (FP) PO SCH (09:29)
[2018-09-28] MEDS: BUPRENORPHINE/NALOXONE 8 MG/2 MG FILM PACKET SL SCH (09:29)
[2018-09-28] MEDS: MELATONIN 5 MG TABLETS PO PRN (21:47)
[2018-09-28] MEDS: THIAMINE HCL 100 MG TABLET (FP) PO SCH (21:48)
[2018-09-29] MEDS: hydrOXYzine PAMOATE 50 MG CAPSULE (FP) PO PRN (06:47)
[2018-09-29 07:25] VITALS: BP 112/73; PULSE 62; TEMP 98.1
--- NOTE | 2018-09-29 09:44 | PN ---
[facility] Progress Note Note: REHAB DISCHARGE NOTE: PATIENT D/C FROM REHAB TODAY AND REPORTS ACCOMPLISHING ALL REHAB GOALS. PATIENT ARRANGED TO GO TO INPATIENT ASSISTED TREATMENT AT [facility] AND THEN TOLD PROVIDER HE PREFERS TO FOLLOW UP WITH [facility]. [facility] CALLED AND CABLE TENDER STATED FOR PATIENT TO GO TO [facility] AFTER D/C TO MAKE INTAKE APPOINTMENT. PATIENT IS MEDICALLY STABLE AT THIS TIME AND DENIES SI/HI. PATIENT ENCOURAGED TO CONTINUE WITH GROUP MEETINGS AND MAT TO PREVENT RELAPSE AND TO FOLLOW UP WITH PCP TO CONTINUE MEDICAL MANAGEMENT. PATIENT STATES HE WILL MAKE HIS OWN APPOINTMENT WITH PCP GROUP. Vital Signs Temperature 98.1 F 09/29/18 07:23 Pulse Rate 62 09/29/18 07:23 Respiratory Rate 18 09/29/18 07:23 Blood Pressure 112/73 09/29/18 07:23 O2 Sat by Pulse Oximetry (%) Ambulatory Orders Hydrochlorothiazide 25 mg PO DAILY #30 tablet 01/21/18 Tramadol HCl 50 mg PO PRN 09/10/18 Buprenorphine/Naloxone [Suboxone 8Mg/2Mg Sl Film -] 1 each SL DAILY #7 packet MDD 8mg/2mg 09/29/18
== END 2018-09-29 09:05 | disposition home or self-care (01) | DRG 772 ==
LOC: YASAS 09:21 → Y3W 12:51
PROVIDERS: ADMIT Neuromusculoskeletal Medicine & OMM; ATTEND Neuromusculoskeletal Medicine & OMM
PROC: HZ42ZZZ Group Counseling for Substance Abuse Treatment, Cognitive-Behavioral (ICD-10-PCS; principal; 2018-09-15)
DX: F11.20 Opioid dependence, uncomplicated (principal); F10.20 Alcohol dependence, uncomplicated; Z59.0 Homelessness

== ENCOUNTER 2018-12-28 09:33 | Inpatient (IN) | payer OTHER ==
[2018-12-28 12:13] VITALS: BMI 41.8
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
[2018-12-28] MEDS ORDERED: METHADONE HCL 10 MG TABLET (FOR DETOX USE ONLY) PO ONE (12:41)
[2018-12-28] MEDS ORDERED: MAGNESIUM HYDROX 2400MG/30ML ORAL SUSPENSION 30 ML CUP PO PRN (12:41)
[2018-12-28] MEDS ORDERED: MENTHOL/PHENOL 1 EACH UD MM PRN (12:41)
[2018-12-28] MEDS ORDERED: ACETAMINOPHEN 325 MG TABLET (FP) PO PRN ×2 (12:41)
[2018-12-28] MEDS ORDERED: IBUPROFEN 400 MG TABLET (FP) PO PRN (12:41)
[2018-12-28] MEDS ORDERED: MAG HYDROX/AL HYDROX/SIMETH 30 ML UNIT-DOSE CUP PO PRN (12:41)
[2018-12-28] MEDS ORDERED: METHOCARBAMOL 500 MG TABLET PO PRN (12:41)
[2018-12-28] MEDS ORDERED: MAGNESIUM CITRATE 300 ML BOTTLE PO PRN (12:41)
[2018-12-28] MEDS ORDERED: BISMUTH SUBSALICYLATE 524 MG/30 ML UD PO PRN (12:41)
[2018-12-28] MEDS: NICOTINE 21 MG/24 HOURS TOPICAL PATCH TD SCH (13:39)
[2018-12-28] MEDS: chlordiazePOXIDE HCL 25 MG CAPSULE PO SCH ×2 (13:43→22:00)
[2018-12-28] MEDS: cloNIDine HCL 0.1 MG TABLET PO PRN (19:33)
[2018-12-28] MEDS: chlordiazePOXIDE HCL 10 MG CAPSULE PO PRN (19:34)
[2018-12-28] MEDS: THIAMINE HCL 100 MG TABLET (FP) PO SCH (22:00)
[2018-12-29] MEDS: chlordiazePOXIDE HCL 10 MG CAPSULE PO PRN (02:42)
[2018-12-29] MEDS: chlordiazePOXIDE HCL 25 MG CAPSULE PO SCH ×3 (06:41→22:00)
[2018-12-29] MEDS ORDERED: METHADONE HCL 10 MG TABLET (FOR DETOX USE ONLY) PO ONE (09:04)
--- NOTE | 2018-12-29 09:13 | PN ---
S CIWA - CIWA Score Nausea/Vomitin Muscle Tremors: 2 Anxiety: 2 Agitation: 2 Paroxysmal Sweats: 1-Minimal Palms Moist Orientation: 0-Oriented Tacttile Disturbances: 1-Very Mild Itch/Numbness Auditory Disturbances: 0-None Visual Disturbances: 0-None Headache: 2-Mild CIWA-Ar Total Score: 12 BHS COWS - Scale Resting Pulse: 0= [place] 80 or Below Sweatin= Chills/Flushing Restless Observation: 1= Difficult to Sit Still Pupil Size: 1= Pupils >than Normal Bone or Joint Aches: 2= Severe Diffuse Aches Runny Nose/ Eye Tearin= Runny Nose/Eyes GI Upset > 30mins: 3= Vomiting/Diarrhea Tremor Observation of Outstretched Hands: 2= Slight Tremor Visible Yawning Observation: 1= 1-2x During Session Anxiety or Irritability: 2=Irritable/Anxious Goose Flesh Skin: 0=Smooth Skin COWS Score: 15 BHS Progress Note (SOAP) Subjective: alert,irritable,anxious,interrupted sleep,pain in the body and back Objective: 12/29/18 09:11 Vital Signs Temperature 99.0 F 12/29/18 06:00 Pulse Rate 56 L 12/29/18 06:00 Respiratory Rate 20 12/29/18 06:00 Blood Pressure 116/53 L 12/29/18 06:00 O2 Sat by Pulse Oximetry (%) 12/29/18 09:12 Laboratory Last Values POC Glucometer 103 UNITS (80-120) 12/29/18 06:50 12/29/18 09:12 labs pending Assessment: 12/29/18 09:11 withdrawal symptom Plan: continue detox,regimen changed due to severe withdrawal methadone and librium regimen
[2018-12-29] MEDS ORDERED: METHADONE HCL 5 MG TABLET (FOR DETOX USE ONLY) PO ONE (10:00)
[2018-12-29 10:39] LABS: ALBUMIN 3.5 g/dl (3.4-5.0); BILIRUBIN,TOTAL 1.1 mg/dL (0.2-1); BLOOD UREA NITROGEN 8.2 mg/dL (7-18); CALCIUM 9.1 mg/dL (8.5-10.1); CREATININE 0.7 mg/dL (0.55-1.3); TOT PROT 6.9 g/dl (6.4-8.2); URIC ACID 5.7 mg/dL (2.6-7.2)
[2018-12-29] MEDS: PRENATAL VITAMINS W/ FOLIC ACID TABLET (FP) PO SCH (10:41)
[2018-12-29] MEDS: NICOTINE 21 MG/24 HOURS TOPICAL PATCH TD SCH (10:42)
[2018-12-29 10:45] LABS: HEMATOCRIT 39.1 % (35.4-49); HEMOGLOBIN 12.9 GM/dL (11.7-16.9); MCH 29.1 pg (25.7-33.7); MEAN CELL VOLUME 88.1 fl (80-96); PLATELET COUNT 238 K/MM3 (134-434); RBC 4.44 M/mm3 (4.00-5.60); RDW 15.4 % (11.9-15.9); WHITE BLOOD COUNT 6.1 K/mm3 (4.0-10.0)
--- NOTE | 2018-12-29 11:16 | PN ---
S Progress Note Note: Laboratory Last Values WBC 6.1 K/mm3 (4.0-10.0) 12/29/18 08:30 RBC 4.44 M/mm3 (4.00-5.60) 12/29/18 08:30 Hgb 12.9 GM/dL (11.7-16.9) 12/29/18 08:30 Hct 39.1 % (35.4-49) 12/29/18 08:30 MCV 88.1 fl (80-96) 12/29/18 08:30 MCH 29.1 pg (25.7-33.7) 12/29/18 08:30 MCHC 33.0 g/dl (32.0-35.9) 12/29/18 08:30 RDW 15.4 % (11.9-15.9) 12/29/18 08:30 Plt Count 238 K/MM3 (134-434) 12/29/18 08:30 MPV 8.0 fl (7.5-11.1) 12/29/18 08:30 Sodium 139 mmol/L (136-145) 12/29/18 08:30 Potassium 4.0 mmol/L (3.5-5.1) 12/29/18 08:30 Chloride 104 mmol/L (98-107) 12/29/18 08:30 Carbon Dioxide 28 mmol/L (21-32) 12/29/18 08:30 Anion Gap 7 MMOL/L (8-16) L 12/29/18 08:30 BUN 8.2 mg/dL (7-18) 12/29/18 08:30 Creatinine 0.7 mg/dL (0.55-1.3) 12/29/18 08:30 Est GFR (CKD-EPI)AfAm 125.75 12/29/18 08:30 Est GFR (CKD-EPI)NonAf 108.50 12/29/18 08:30 POC Glucometer 103 UNITS (80-120) 12/29/18 06:50 Random Glucose 102 mg/dL (74-106) 12/29/18 08:30 Uric Acid 5.7 mg/dL (2.6-7.2) 12/29/18 08:30 Calcium 9.1 mg/dL (8.5-10.1) 12/29/18 08:30 Total Bilirubin 1.1 mg/dL (0.2-1) H 12/29/18 08:30 AST 17 U/L (15-37) 12/29/18 08:30 ALT 19 U/L (13-61) 12/29/18 08:30 Alkaline Phosphatase 64 U/L (45-117) 12/29/18 08:30 Total Protein 6.9 g/dl (6.4-8.2) 12/29/18 08:30 Albumin 3.5 g/dl (3.4-5.0) 12/29/18 08:30
[2018-12-29] MEDS: cloNIDine HCL 0.1 MG TABLET PO PRN (17:40)
[2018-12-29] MEDS: THIAMINE HCL 100 MG TABLET (FP) PO SCH (22:32)
[2018-12-30] MEDS: hydrOXYzine PAMOATE 25 MG CAPSULE (FP) PO PRN ×2 (00:57→12:30)
[2018-12-30] MEDS: chlordiazePOXIDE 5 MG CAPSULE PO SCH ×3 (06:16→22:20)
[2018-12-30] MEDS ORDERED: METHADONE HCL 5 MG TABLET (FOR DETOX USE ONLY) ONE (09:28)
[2018-12-30] MEDS ORDERED: METHADONE HCL 10 MG TABLET (FOR DETOX USE ONLY) ONE (09:28)
[2018-12-30] MEDS ORDERED: METHADONE HCL 10 MG TABLET (FOR DETOX USE ONLY) PO ONE (10:00)
[2018-12-30] MEDS ORDERED: METHADONE (DETOX) 20 MG, METHADONE (DETOX) 5 MG PO ONE (10:00)
[2018-12-30] MEDS: PRENATAL VITAMINS W/ FOLIC ACID TABLET (FP) PO SCH (10:14)
[2018-12-30] MEDS: NICOTINE 21 MG/24 HOURS TOPICAL PATCH TD SCH (10:14)
[2018-12-30] MEDS: cloNIDine HCL 0.1 MG TABLET PO PRN ×2 (10:16→17:11)
--- NOTE | 2018-12-30 15:03 | PN ---
S CIWA - CIWA Score Nausea/Vomitin-No Nausea/No Vomiting Muscle Tremors: 3 Anxiety: 3 Agitation: 0-Normal Activity Paroxysmal Sweats: 2 Orientation: 0-Oriented Tacttile Disturbances: 0-None Auditory Disturbances: 1-Very Mild Visual Disturbances: 2-Mild Sensitivity Headache: 2-Mild CIWA-Ar Total Score: 13 BHS COWS - Scale Resting Pulse: 0= [place] 80 or Below Sweatin= Chills/Flushing Restless Observation: 0= Sits Still Pupil Size: 0= Normal to Room Light Bone or Joint Aches: 2= Severe Diffuse Aches Runny Nose/ Eye Tearin= None GI Upset > 30mins: 0= None Tremor Observation of Outstretched Hands: 2= Slight Tremor Visible Yawning Observation: 1= 1-2x During Session Anxiety or Irritability: 2=Irritable/Anxious Goose Flesh Skin: 3=Piloerection COWS Score: 11 BHS Progress Note (SOAP) Subjective: Anxious, Sweating, Tremors, Body Aches. Objective: PATIENT A & O X 3. IN NO ACUTE DISTRESS. 12/30/18 15:04 Vital Signs Temperature 96.6 F L 12/30/18 13:05 Pulse Rate 61 12/30/18 13:05 Respiratory Rate 18 12/30/18 13:05 Blood Pressure 126/73 12/30/18 13:05 O2 Sat by Pulse Oximetry (%) Laboratory Tests 12/28/18 12/29/18 12/29/18 16:40 06:50 08:30 WBC 6.1 RBC 4.44 Hgb 12.9 Hct 39.1 MCV 88.1 MCH 29.1 MCHC 33.0 RDW 15.4 Plt Count 238 MPV 8.0 Sodium Potassium Chloride Carbon Dioxide Anion Gap BUN Creatinine Est GFR (CKD-EPI)AfAm Est GFR (CKD-EPI)NonAf POC Glucometer 109 103 Random Glucose Uric Acid Calcium Total Bilirubin AST ALT Alkaline Phosphatase Total Protein Albumin RPR Titer 12/29/18 12/29/18 08:30 08:30 WBC RBC Hgb Hct MCV MCH MCHC RDW Plt Count MPV Sodium 139 Potassium 4.0 Chloride 104 Carbon Dioxide 28 Anion Gap 7 L BUN 8.2 Creatinine 0.7 Est GFR (CKD-EPI)AfAm 125.75 Est GFR (CKD-EPI)NonAf 108.50 POC Glucometer Random Glucose 102 Uric Acid 5.7 Calcium 9.1 Total Bilirubin 1.1 H AST 17 ALT 19 Alkaline Phosphatase 64 Total Protein 6.9 Albumin 3.5 RPR Titer Nonreactive LABS NOTED. RESULTS OF BGM'S DONE THUS FAR NOTED (RESULTS WITHIN NORMAL RANGE THUS FAR). 12/30/18 15:06 Assessment: 12/30/18 15:05 WITHDRAWAL SYMPTOMS. 12/30/18 15:07 Plan: CONTINUE DETOX. INCREASE DAILY PO WATER INTAKE.
[2018-12-30] MEDS: THIAMINE HCL 100 MG TABLET (FP) PO SCH (22:20)
[2018-12-30] MEDS: MELATONIN 5 MG TABLETS PO PRN (22:20)
[2018-12-31] MEDS ORDERED: chlordiazePOXIDE HCL 10 MG CAPSULE PO PRN
[2018-12-31] MEDS ORDERED: METHADONE HCL 5 MG TABLET (FOR DETOX USE ONLY) PO ONE (06:00)
[2018-12-31] MEDS: chlordiazePOXIDE HCL 10 MG CAPSULE PO SCH ×3 (06:04→21:13)
[2018-12-31] MEDS: cloNIDine HCL 0.1 MG TABLET PO PRN ×2 (06:09→17:09)
[2018-12-31] MEDS: PRENATAL VITAMINS W/ FOLIC ACID TABLET (FP) PO SCH (09:59)
[2018-12-31] MEDS: NICOTINE 21 MG/24 HOURS TOPICAL PATCH TD SCH (10:00)
[2018-12-31] MEDS ORDERED: METHADONE HCL 10 MG TABLET (FOR DETOX USE ONLY) PO ONE (10:00)
--- NOTE | 2018-12-31 10:53 | PN ---
[facility] CIWA - CIWA Score Nausea/Vomitin-Mild Nausea/No Vomiting Muscle Tremors: 1-None Visible, but [place] Anxiety: 1-Mildly Anxious Agitation: 1-Slight > Activity Paroxysmal Sweats: No Perspiration Orientation: 0-Oriented Tacttile Disturbances: 1-Very Mild Itch/Numbness Auditory Disturbances: 0-None Visual Disturbances: 0-None Headache: 1-Very Mild CIWA-Ar Total Score: 6 BHS COWS - Scale Resting Pulse: 0= [place] 80 or Below Sweatin= No chills or Flushing Restless Observation: 1= Difficult to Sit Still Pupil Size: 1= Pupils >than Normal Bone or Joint Aches: 1= Mild Discomfort Runny Nose/ Eye Tearin= Nasal Congestion GI Upset > 30mins: 1= Stomach Cramp Tremor Observation of Outstretched Hands: 1= Tremor [place], Not Seen Yawning Observation: 1= 1-2x During Session Anxiety or Irritability: 2=Irritable/Anxious Goose Flesh Skin: 0=Smooth Skin COWS Score: 9 [facility] Progress Note (SOAP) Subjective: alert,irrritable,anxious,interrupted sleep,pain in the body Objective: 12/31/18 10:52 Vital Signs Temperature 97.5 F L 12/31/18 08:47 Pulse Rate 58 L 12/31/18 08:47 Respiratory Rate 18 12/31/18 08:47 Blood Pressure 104/58 L 12/31/18 08:47 O2 Sat by Pulse Oximetry (%) Assessment: 12/31/18 10:52 withdrawal symptom Plan: continue detox,methadone and librium regimen
[2018-12-31] MEDS: MELATONIN 5 MG TABLETS PO PRN (22:13)
[2018-12-31] MEDS: THIAMINE HCL 100 MG TABLET (FP) PO SCH (22:13)
[2019-01-01] MEDS ORDERED: chlordiazePOXIDE HCL 10 MG CAPSULE PO ONE (05:00)
[2019-01-01] MEDS: hydrOXYzine PAMOATE 25 MG CAPSULE (FP) PO PRN (06:35)
[2019-01-01 06:58] VITALS: BP 116/60; PULSE 60; TEMP 97.7
--- NOTE | 2019-01-01 08:41 | DS ---
[facility] Detox Discharge Summary Admission Date: 12/28/18 Discharge Date: 01/01/19 - History Present History: Opioid Dependence - Physical Exam Results Vital Signs: Vital Signs Temperature 97.7 F 01/01/19 06:57 Pulse Rate 60 01/01/19 06:57 Respiratory Rate 18 01/01/19 06:57 Blood Pressure 116/60 01/01/19 06:57 O2 Sat by Pulse Oximetry (%) Pertinent Admission Physical Exam Findings: pt arrived in withdrawals Laboratory Tests 12/28/18 12/29/18 12/29/18 16:40 06:50 08:30 WBC 6.1 RBC 4.44 Hgb 12.9 Hct 39.1 MCV 88.1 MCH 29.1 MCHC 33.0 RDW 15.4 Plt Count 238 MPV 8.0 Sodium Potassium Chloride Carbon Dioxide Anion Gap BUN Creatinine Est GFR (CKD-EPI)AfAm Est GFR (CKD-EPI)NonAf POC Glucometer 109 103 Random Glucose Uric Acid Calcium Total Bilirubin AST ALT Alkaline Phosphatase Total Protein Albumin RPR Titer 12/29/18 12/29/18 08:30 08:30 WBC RBC Hgb Hct MCV MCH MCHC RDW Plt Count MPV Sodium 139 Potassium 4.0 Chloride 104 Carbon Dioxide 28 Anion Gap 7 L BUN 8.2 Creatinine 0.7 Est GFR (CKD-EPI)AfAm 125.75 Est GFR (CKD-EPI)NonAf 108.50 POC Glucometer Random Glucose 102 Uric Acid 5.7 Calcium 9.1 Total Bilirubin 1.1 H AST 17 ALT 19 Alkaline Phosphatase 64 Total Protein 6.9 Albumin 3.5 RPR Titer Nonreactive today pt is aaox3 ambulating no acute distress no s/s of withdrawals pt has an appt with [facility] Saturday morning. - Treatment Hospital Course: Detox Protocol Followed, Detoxed Safely, Responded well, Discharged Condition Good, Rehab Referral Accepted Patient has Accepted a Rehab Referral to: pt referred to [facility] - Diagnosis (1) Alcoholic peripheral neuropathy Current Visit: No Status: Chronic (2) Anxiety Current Visit: No Status: Acute (3) Herniated lumbar intervertebral disc Current Visit: No Status: Chronic (4) Knee pain, acute Current Visit: No Status: Chronic Qualifiers: Laterality: left Qualified Code(s): M25.562 - Pain in left knee (5) Substance-induced sleep disorder Current Visit: No Status: Acute (6) Alcohol dependence with uncomplicated withdrawal Current Visit: Yes Status: Chronic (7) HTN (hypertension) Current Visit: Yes Status: Chronic Qualifiers: Hypertension type: essential hypertension Qualified Code(s): I10 - Essential (primary) hypertension (8) Hepatitis C Current Visit: Yes Status: Chronic Qualifiers: Viral hepatitis chronicity: chronic Hepatic coma status: without hepatic coma Qualified Code(s): B18.2 - Chronic viral hepatitis C (9) Obesity Current Visit: Yes Status: Chronic Qualifiers: Obesity type: due to excess calories Obesity classification: adult class 3 (BMI >= 40) Serious obesity comorbidity presence: unspecified whether serious comorbidity present Body mass index: BMI 40.0-44.9 Qualified Code(s): E66.01 - Morbid (severe) obesity due to excess calories; Z68.41 - Body mass index (BMI) 40.0-44.9, adult (10) Opiate dependence Current Visit: Yes Status: Chronic Qualifiers: Substance use status: uncomplicated Qualified Code(s): F11.20 - Opioid dependence, uncomplicated (11) Osteoarthritis, knee Current Visit: No Status: Chronic Qualifiers: Osteoarthritis type: primary Laterality: bilateral Qualified Code(s): M17.0 - Bilateral primary osteoarthritis of knee - AMA Did Patient Leave Against Medical Advice: No
[2019-01-01] MEDS ORDERED: METHADONE HCL 10 MG TABLET (FOR DETOX USE ONLY) ONE (08:58)
[2019-01-01] MEDS ORDERED: METHADONE HCL 5 MG TABLET (FOR DETOX USE ONLY) ONE (08:58)
[2019-01-01] MEDS: PRENATAL VITAMINS W/ FOLIC ACID TABLET (FP) PO SCH (09:03)
[2019-01-01] MEDS: NICOTINE 21 MG/24 HOURS TOPICAL PATCH TD SCH (09:03)
[2019-01-01] MEDS ORDERED: METHADONE (DETOX) 10 MG, METHADONE (DETOX) 5 MG PO ONE (10:00)
[2019-01-02] MEDS ORDERED: METHADONE HCL 10 MG TABLET (FOR DETOX USE ONLY) PO ONE (10:00)
[2019-01-03] MEDS ORDERED: METHADONE HCL 5 MG TABLET (FOR DETOX USE ONLY) PO ONE (06:00)
== END 2019-01-01 09:06 | disposition home or self-care (01) | DRG 773 ==
LOC: YASAS 09:33 → Y6N 12:53
PROVIDERS: ADMIT Surgery; ATTEND Surgery
PROC: HZ2ZZZZ Detoxification Services for Substance Abuse Treatment (ICD-10-PCS; principal; 2018-12-28)
DX: F11.23 Opioid dependence with withdrawal (principal); F10.230 Alcohol dependence with withdrawal, uncomplicated; F41.9 Anxiety disorder, unspecified; F19.282 Other psychoactive substance dependence with psychoactive substance-induced sleep disorder; I10 Essential (primary) hypertension; G62.1 Alcoholic polyneuropathy; M17.0 Bilateral primary osteoarthritis of knee; M51.26 Other intervertebral disc displacement, lumbar region; B18.2 Chronic viral hepatitis C; M25.562 Pain in left knee; G89.29 Other chronic pain; R60.0 Localized edema; E66.01 Morbid (severe) obesity due to excess calories; Z68.41 Body mass index [BMI] 40.0-44.9, adult
CPT/HCPCS: 36415; 80053; 82962; 84550; 85027; 86593; J0735

== ENCOUNTER 2019-04-28 16:29 | Emergency (ER) | payer OTHER ==
[2019-04-28 16:38] VITALS: BMI 41.8
--- NOTE | 2019-04-28 19:56 | PDOC ---
Attending Attestation - Resident Resident Name: MatSaqibJulian - ED Attending Attestation I have performed the following: I have examined & evaluated the patient, The case was reviewed & discussed with the resident, I agree w/resident's findings & plan - HPI HPI: 04/28/19 23:34 see resident hpi - Physicial Exam PE: 04/28/19 23:34 agree with resident exam - Medical Decision Making 04/28/19 23:34 54-year-old male complaining of right leg swelling and pain, Chest x-ray and right tib-fib x-rays performed there is some evidence of soft tissue swelling with no acute bony abnormality There is no focal infiltrate on chest or suggestion of CHF Lower extremity duplex negative for DVT Labs were unremarkable Patient is nontoxic-appearing, afebrile with a normal white blood cell count There is no evidence at this time for deep tissue infection We will DC on clindamycin with recommended 48-hour recheck
--- NOTE | 2019-04-28 20:31 | PDOC ---
History of Present Illness - General Chief Complaint: Edema Stated Complaint: LEG PAIN Time Seen by Provider: 04/28/19 16:34 - History of Present Illness Initial Comments: 04/28/19 20:27 54 yo M with h/o opioid dependence, alcohol dependence, peripheral neuropathy, anxiety, multiple herniated discs, chronic back pain, Hep C, OA who p/w right leg swelling. Patient reports 1 days of progressive RLE swelling from foot to knee. Patient states that his right leg feels painful and tight. Patient denies h/o prior h/o extremity swelling. Also endorses 2 weeks of Lee. Patient denies SWAIN, vision change, palpitations, hemoptysis, cough, wheezing, orthopena, PND, N/V, F,C, CP, urinary complaints, hematuria, BPR, abdominal pain, diarrhea, constipation, lightheadedness, weakness, sensory changes. PMHx: as noted above. Patient denies malignancy, recent trauma or immobilization , surgery, h/o PE/DVT. Denies h/o cardiology encounter, stent placement, CABG, stress testing. ROS: as noted SHx: On Methadone. Last dose (04/28/18) Allergies: NKDA Past History - Past Medical History Allergies/Adverse Reactions: Allergies Allergy/AdvReac Type Severity Reaction Status Date / Time No Known Allergies Allergy Verified 04/28/19 16:38 Home Medications: Ambulatory Orders Clindamycin [Cleocin -] 300 mg PO Q6HPO #28 capsule 04/28/19 Anemia: No Asthma: No Cancer: No Cardiac Disorders: No CVA: No COPD: No CHF: No Dementia: No Diabetes: No GI Disorders: No Disorders: No HTN: No Hypercholesterolemia: No Kidney Stones: No Liver Disease: No Seizures: No Thyroid Disease: No - Surgical History Abdominal Surgery: No Appendectomy: No Cardiac Surgery: No Cholecystectomy: No Lung Surgery: No Neurologic Surgery: No Orthopedic Surgery: No - Reproductive History Testicular Surgery: No - Psycho Social/Smoking Cessation Hx Smoking History: Never smoked Have you smoked in the past 12 months: No Cigars Per Day: 0 Hx Alcohol Use: Yes Drug/Substance Use Hx: Yes Substance Use Type: Alcohol, Heroin Hx Substance Use Treatment: Yes (rehab 01/01/18 to 01/22/18) Review of Systems - Review of Systems Comments:: 01/21/20 20:30 GENERAL/CONSTITUTIONAL: No fever or chills. No weakness. HEAD, EYES, EARS, NOSE AND THROAT: No change in vision. No ear pain or discharge. No sore throat. CARDIOVASCULAR: + SOB. No chest pain. RESPIRATORY: No cough, wheezing, or hemoptysis. GASTROINTESTINAL: No nausea, vomiting, diarrhea or constipation. GENITOURINARY: No dysuria, frequency, or change in urination. MUSCULOSKELETAL: + RLE swelling. No joint or muscle swelling or pain. No neck or back pain. SKIN: No rash NEUROLOGIC: No headache, vertigo, loss of consciousness, or change in strength/ sensation. ENDOCRINE: No increased thirst. No abnormal weight change HEMATOLOGIC/LYMPHATIC: No anemia, easy bleeding, or history of blood clots. ALLERGIC/IMMUNOLOGIC: No hives or skin allergy. *Physical Exam - Vital Signs Last Vital Signs Temp Pulse Resp BP Pulse Ox 98 F 65 18 154/79 97 04/28/19 16:35 04/28/19 16:35 04/28/19 16:35 04/28/19 16:35 04/28/19 16:35 - Physical Exam 04/28/19 20:30 GENERAL: Awake, alert, and fully oriented, in no acute distress HEAD: No signs of trauma, normocephalic, atraumatic EYES: PERRLA, EOMI, sclera anicteric, conjunctiva clear ENT: Hearing grossly normal, nares patent, oropharynx clear without exudates. Moist mucosa NECK: Normal ROM, supple, no lymphadenopathy, JVD, or masses LUNGS: No distress, speaks full sentences, clear to auscultation bilaterally HEART: Regular rate and rhythm, normal S1 and S2, no murmurs, rubs or gallops, peripheral pulses normal and equal bilaterally. ABDOMEN: Soft, nontender, normoactive bowel sounds. No guarding, no rebound. No masses EXTREMITIES : R>L circumferential edema from foot to knee.+ erythema and diffuse ttp. Absent fluctuance, or streaking. Normal inspection, Normal range of motion No clubbing or cyanosis. Palpable and 2+ symmetric peripheral pulses. NEUROLOGICAL: Cranial nerves II through XII grossly intact. Normal speech, normal gait, no focal sensorimotor deficits SKIN: Warm, Dry, normal turgor, no rashes or lesions noted Heart Score/ECG Review - History History: Slightly suspicious - Electrocardiogram EKG: Non specific repolarization disturbance - Age Age: 45-65 - Risk Factors Risk Factors Heart Score: Yes Hx Hypercholesterolemia, Yes Hx Hypertension, Yes Smoking History, Yes Positive family hx of cardiac disease, Yes Hx Obesity Based on the list above the patient has:: >/=3 risk factors or Hx atherosclerotic disease ED Treatment Course - LABORATORY CBC & Chemistry Diagram: 04/28/19 21:05 04/28/19 21:05 Medical Decision Making - Medical Decision Making 04/28/19 20:54 54 yo M with h/o opioid dependence, alcohol dependence, peripheral neuropathy, anxiety, multiple herniated discs, chronic back pain, Hep C, OA who p/w right leg swelling x 7 days, and 2 weeks of Lee. Vitals wnl, AF, A&Ox3. Physical exam notable for R>L, circumferential, edema, with erythema and ttp. RLE neurovasculalry intact. Denies palpitations, hemoptysis, cough, wheezing, orthopena, PND, N/V, F,C, CP, urinary complaints, abdominal pain, lightheadedness, weakness, sensory changes. Lungs CTA. ACS/LA. Will consider DVT , vs. cellulitis vs. gravity dependent edema. Will consider CHF/volume overload. Ed Course: Clindamycin 600 04/28/19 21:37 EKG: NSR with absent RADHIKA, STD. Nml interval duration and axis. Nml R wave progression. Absent Q waves. 04/28/19 22:51 Laboratory Tests 04/28/19 04/28/19 04/28/19 21:05 21:05 21:05 WBC 5.8 Hgb 12.1 Hct 36.7 Plt Count 213 Sodium 139 Potassium 3.9 BUN 10.8 Creatinine 0.8 Troponin I < 0.02 B-Natriuretic Peptide 42.6 04/28/19 22:52 Duplex BL LE: No DVT, unremarkable 04/28/19 22:58 Clindamycin 300 mg QID sent to pharmacy 04/28/19 23:44 R tib/fib unremarkable stable for d/c with return precautions Discharge - Discharge Information Problems reviewed: Yes Clinical Impression/Diagnosis: Swelling of extremity, right Cellulitis Qualifiers: Site of cellulitis: extremity Site of cellulitis of extremity: lower extremity Laterality: right Qualified Code(s): L03.115 - Cellulitis of right lower limb Condition: Stable Disposition: HOME - Admission No - Additional Discharge Information Prescriptions: Clindamycin [Cleocin -] 300 mg PO Q6HPO #28 capsule - Follow up/Referral Referrals: Cass Mendoza MD [Primary Care Provider] - - Patient Discharge Instructions Patient Printed Discharge Instructions: DI for Cellulitis -- Adult Additional Instructions: Please return to the emergency department with any new or worsening symptoms or concerns. Please return if redness and swelling worsen. Please follow up with your primary care physician within 72 hours. Please take Clindamycin 300 mg every 6 hours for one week. - Post Discharge Activity
[2019-04-28 21:36] LABS: BASO % 0.8 % (0-2.0); EOS % 3.8 % (0-4.5); HEMATOCRIT 36.7 % (35.4-49); HEMOGLOBIN 12.1 GM/dL (11.7-16.9); LYMPH % 25.9 % (8-40); MCH 30.2 pg (25.7-33.7); MEAN CELL VOLUME 91.5 fl (80-96); MEAN PLT VOLUME 7.5 fl (7.5-11.1); MONO % 9.1 % (3.8-10.2); NEUT % 60.4 % (42.8-82.8); PLATELET COUNT 213 K/MM3 (134-434); RBC 4.01 M/mm3 (4.00-5.60); RDW 14.4 % (11.9-15.9); WHITE BLOOD COUNT 5.8 K/mm3 (4.0-10.0)
[2019-04-28 21:48] LABS: PROTHROMBIN TIME (PATIENT) 11.8 SEC (9.7-13.0)
[2019-04-28 22:26] LABS: ALBUMIN 3.4 g/dl (3.4-5.0); ALK PHOS 77 U/L (45-117); ANION GAP 3 MMOL/L (8-16); BILIRUBIN,TOTAL 0.2 mg/dL (0.2-1); BLOOD UREA NITROGEN 10.8 mg/dL (7-18); CALCIUM 8.3 mg/dL (8.5-10.1); CHLORIDE 104 mmol/L (98-107); CO2 32 mmol/L (21-32); CREATININE 0.8 mg/dL (0.55-1.3); GLUCOSE,RANDOM 103 mg/dL (74-106); POTASSIUM 3.9 mmol/L (3.5-5.1); SGOT/AST 26 U/L (15-37); SGPT/ALT 23 U/L (13-61); SODIUM 139 mmol/L (136-145); TOT PROT 6.6 g/dl (6.4-8.2)
[2019-04-28] MEDS ORDERED: CLINDAMYCIN IVPB 300 MG in DEXTROSE 5%-WATER - 48 ML IVPB ONE (22:57)
[2019-04-28] MEDS ORDERED: CLINDAMYCIN 600MG PREMIX IVPB 600 MG/50 ML BAG IVPB ONE ×2 (23:28→23:44)
[2019-04-29 00:18] VITALS: BP 138/74; PULSE 78; TEMP 98.1
--- NOTE | 2019-04-29 10:39 | EKG ---
Test Reason : Blood Pressure : / mmHG Vent. Rate : 063 BPM Atrial Rate : 063 BPM P-R Int : 172 ms QRS Dur : 100 ms QT Int : 398 ms P-R-T Axes : 059 006 008 degrees QTc Int : 407 ms NORMAL SINUS RHYTHM NORMAL ECG WHEN COMPARED WITH ECG OF 01-JAN-2018 13:09, NO SIGNIFICANT CHANGE WAS FOUND Confirmed by SHEKHAR JARVIS MD ([id number]) on 04/29/2019 10:38:40 AM Referred By: Confirmed By:SHEKHAR JARVIS MD
== END 2019-04-29 00:17 | disposition home or self-care (01) ==
LOC: JER 16:29
DX: L03.115 Cellulitis of right lower limb (principal); F11.20 Opioid dependence, uncomplicated; G62.9 Polyneuropathy, unspecified; F41.9 Anxiety disorder, unspecified; B18.2 Chronic viral hepatitis C; M19.90 Unspecified osteoarthritis, unspecified site; M54.89 Other dorsalgia; G89.29 Other chronic pain
CPT/HCPCS: 36415; 71046-TC-FY; 73590-TC-RT-FY; 80053; 82550; 82553; 83880; 84484; 85025; 85610; 85730; 93005; 93010; 93970-TC; 96365; 99284-25